=== PATIENT | male | born 1955 | race Caucasian/White ===

== ENCOUNTER 2018-07-08 13:45 | Inpatient (IN) | payer MEDICAID, SELFPAY ==
[2018-07-08] VITALS (15 sets, daily range): BP systolic 128–154; BP diastolic 57–74; PULSE 28–120; RESP 18–104; TEMP 36.1–36.9; O2SAT 88–93; BMI 28.4; BMI 31.3
--- NOTE | 2018-07-08 13:58 | EKG12_ITS ---
Test Reason : SOB Blood Pressure : / mmHG Vent. Rate : 099 BPM Atrial Rate : 099 BPM P-R Int : 140 ms QRS Dur : 080 ms QT Int : 324 ms P-R-T Axes : 082 080 068 degrees QTc Int : 415 ms Normal sinus rhythm Normal ECG Confirmed by PJ KIRK ([id number]), index editor LUCA CHOWDARY ([id number]) on 07/11/2018 2:00:05 PM Referred By: Mal Longoria Confirmed By:PJ KIRK
[2018-07-08] MEDS: Albuterol 2.5 MG/3 ML VIAL.NEB. INHALATION ×3 (14:03→14:33)
[2018-07-08] MEDS: Ipratropium/Albuterol Sulfate 3 ML AMPUL.NEB INHALATION ×3 (14:03→23:35)
[2018-07-08] MEDS: MethylPREDNISolone 125 MG/2 ML Vial IV (14:20)
[2018-07-08] MEDS: 0.9% Normal Saline 1,000 ML 150 ML IV (14:20)
--- NOTE | 2018-07-08 14:45 | RAD_ITS ---
STUDY: X-RAY CHEST REASON FOR EXAM: Male, 62 years old. Cough. TECHNIQUE: PA and lateral views of the chest. COMPARISON: Comparison is made with prior study dated June 06, 2015. FINDINGS: EKG electrodes are seen. Mild increased interstitial markings in the left mid lung. This may represent early infiltrate and/or linear atelectasis. Follow-up is recommended. There is no demonstrated pleural abnormality. Normal size heart. Normal mediastinum and guerita. Normal visualized pulmonary arteries. Normal visualized aortic arch and descending thoracic aorta. Normal visualized thoracic spine. Normal visualized ribs, clavicles, and shoulders. There is no demonstrated abnormality of the visualized soft tissue structures of the upper abdomen. RAD/Chest PA and Lateral IMPRESSION: Mild increase in markings in the left midlung. Follow-up is recommended. Electronically Signed: Jeromy James, at 15:05 EDT , Service support ,
[2018-07-08 14:48] LABS: Anion Gap 4 (5-15); BUN 16 mg/dL (7-18); BUN/Creat Ratio 13.3 RATIO (10-20); Calcium,Total 9.1 mg/dL (8.5-10.1); Chloride 103 mmol/L (98-107); EST Glomerular Filtration Rate 66 mL/min (>60); Est Glom Filt Rate - Afr Amer 79 mL/min (>60); Estimated Creatinine Clearance 65.46 ml/min; Glucose 161 mg/dL (74-106); Potassium 4.2 mmol/L (3.5-5.1); Sodium Level 135 mmol/L (136-145)
[2018-07-08 14:53] LABS: Absolute Lymphocyte Count 1.93 X10^3/ul (0.83-4.51); Basophil# 0.03 X10^3/uL; Basophil% 0.3 % (0-1); Eosinophil# 0.07 X10^3/uL; Eosinophils% 0.6 % (0-5); Hematocrit 39.6 % (40-54); Hemoglobin 13.8 g/dl (13.0-16.5); Lymphocyte # 1.93 X10^3/ul (4.0); Lymphocyte % 17.1 % (19-41); Mean Corp Hgb Conc 34.8 g/gl (32-36); Mean Corpuscular Hgb 32.4 pg (27.0-32.0); Mean Platelet Vol. 10.3 fl (6.2-12.0); Monocyte# 1.19 X10^3/uL; Monocyte% 10.6 % (0-10); Platelet Count 218 K/mm3 (150-450); RBC Distribution Width CV 11.8 % (11.6-14.6); RBC Distribution Width SD 39.1 fl (35.1-43.9); Red Blood Count 4.26 M/mm3 (4.6-6.2); White Blood Count 11.3 K/mm3 (4.4-11.0)
[2018-07-08 14:54] LABS: POSITIVE COUNT NO; POSITIVE DIFFERENTIAL NO; POSITIVE MORPHOLOGY NO
--- NOTE | 2018-07-08 15:04 | ED.VISSUMM ---
- ER Visit Summary Date of Service: 07/08/18 Chief Complaint: Shortness of breath History of Present Illness: The patient is a 62 M presents to the emergency department shortness of breath. Patient does have a history of [id number] diabetes and COPD. He continues to smoke. He states over the past 4 days, he had increasing dyspnea, cough with productive sputum, and shortness of breath. He states today, it is worsened. He states that he actually tried to smoke some cigarettes to get through it but it did not help. He denies any fevers or chills. He only has chest pain when he is coughing. He denies any pain with taking a deep breath, exertional chest pain, or history of DVT. Physical Examination: Vital signs reviewed General: Well-nourished, well-developed Head: Normocephalic, atraumatic Eyes: Pupils equal and reactive, extraocular muscles intact Neck, supple, no lymphadenopathy Heart: Regular rate and rhythm Respiratory: No distress, wheezing in all lung turk Abdomen: Soft, nontender, nondistended, no peritoneal signs Back: Nontender Extremities: Nontender, no edema, no cords Skin: Normal color no rash Neuro: Alert and oriented, no focal or lateralizing deficits Test Results: [] Emergency Department Course and Treatment: [Patient has wheezing all lung turk. IV was established. He was given Solu-Medrol. He is also given multiple nebulized breathing treatments. He did have some transient hypoxia with saturations at 88%. With 2 L, he was up to 99%. Chest x-ray shows atelectasis versus early infiltrate in the left middle lobe. The patient will be started on antibiotics. Labs are unremarkable. EKG was unremarkable. He said no ischemic change. Patient was ambulated in the emergency department. He could not even get up out of bed without becoming acutely hypoxic. His saturations dropped to 85%. He was still had resting tachypnea. The patient is covered with azithromycin. At this time, I do feel he can require admission for continued lung therapy. Patient was discussed with the hospitalist. Treatment Plan: [] Disposition: Admission Impression: 1. COPD exacerbation with hypoxia This note was generated with [employer] software. It may contain incorrect words, spelling, and punctuation that were not noted in review of the chart prior to signing ED Disposition - Plan for ED Patient: Referrals: Lucius Saldana MD [Primary Care Provider] -
--- NOTE | 2018-07-08 16:56 | PCM.HP.STD ---
Problem List (1) Shortness of breath Status: Acute History of Present Illness Date of Admission: 07/08/18 Chief Complaint: Shortness of breath, yellow sputum production The patient is a 62 year old M who was seen in the emergency room at [facility] with chief complaint of shortness of breath and yellow sputum production x4 days. Patient smokes 2 to 3 packs of cigarettes a day but has cut down over the past several days due to shortness of breath. Patient denies any chills or fever, patient denies any alcohol use-he states he is an alcoholic and a former drug abuser (marijuana). Work-up in the emergency room showed an increased area of markings in the left midlung, no overt infiltrate suggestive of pneumonia was noted. Patient's white blood cell count was 11.3, glucose was 161. Patient was given aerosol treatments in the emergency room, his pulse ox on room air while ambulating was 85% and the patient appeared acutely dyspneic on walking-hospitalist service was called for admission. Patient will be admitted to [place] [address] for acute exacerbation of COPD and hypoxia. Past Medical History Past Medical History (Chronic Problems): Chronic Problems Actinic keratosis (Chronic) L57.0 8 mm actinic keratosis with atypia right nasal dorsum Neoplasm of skin of nose (Chronic) D49.2 8 mm lesion right nasal dorsum Allergies No Known Allergies Allergy (Verified 03/12/16 10:53) Home Medications: Ambulatory Orders Medication Instructions Recorded Lisinopril [Zestril] 10 mg PO DAILY 06/06/15 Metformin HCl [Glucophage] 1,000 mg PO BIDCM 06/06/15 [place]-3 Fatty Acids/Fish Oil 1 each PO BID 06/06/15 [[place] 3 1,000 mg Softgel] glipiZIDE [Glucotrol] 5 mg PO DAILY@0730 06/06/15 Ascorbic Acid [Vitamin C] 2,000 mg PO DAILY 07/08/18 Gemfibrozil 600 mg PO BID 07/08/18 Surgical History: - - Exploratory laparotomy due to trauma Psychiatric History: No pertinent psych hx Lives: Alone Smoking Status: Current every day smoker Tobacco Use: Cigarettes Alcohol: None Drugs: None - *Family History Maternal History Items: No pertinent history Review of Systems Constitutional: Denies: Anorexia, Chills, Fever, Night Sweats, Weakness, Weight Change Eyes: Denies: Blurred vision, Cataracts, Conjunctivae Inflammation, Double vision, Drainage HEENT: Denies: Difficulty Swallowing, Dysphasia, Ear Pain, Eye Pain, Hearing Changes, Nasal bleeding, Nasal Congestion, Post Nasal Drip Cardiovascular: Denies: Chest Pain, Claudication, Chest Pressure, Chest Tightness, Edema, Heaviness, Palpitations Respiratory: Reports: Cough, Shortness of Breath, Shortness of breath at rest, Shortness of breath upon exertion, Sputum production. Denies: Hemoptysis, Pleuritic Pain Gastrointestinal: Denies: Abdominal Pain, Constipation, Diarrhea, Hematemesis, Hematochezia, Nausea, Melena, Vomiting Genitourinary: Denies: Dysuria, Frequency, Hematuria, Hesitancy, Incontinence, Nocturia, Retention, Urgency Musculoskeletal: Denies: Back Pain, Foot Pain, Hand Pain, Joint Pain, Joint stiffness, Joint swelling, Joint Tenderness, Leg Pain Skin: Denies: Dryness, Jaundice, Pruritis, Rash Neurological: Denies: Blurred vision, Double vision, Change in Speech, Slurred speech, Difficulty swallowing, Focal weakness, Headaches, Incoordination, Numbness, Tingling Psychiatric: Denies: Anxiety, Depression, Homicidal Ideations, Suicidal Ideations Endocrine: Denies: Change in Body Habitus, Heat/ Cold Intolerance, Polydipsia, Polyuria, Hx of Irradiation Hematologic/ Lymphatic: Denies: Adenopathy, Anemia, Easy Bruising, Easy Bleeding, Petechiae, Purpura VTE Information - Inpt Only VTE Present on Admission: No VTE Mechan Device Prophylaxis: None VTE Pharm Prophylaxis ordered?: Yes Patient Problems: Active and Suspected Problems Shortness of breath (Acute) - Physical Exam General: Alert, Oriented x3, Cooperative, No apparent distress, Well developed, Well nourished HEENT: Atraumatic, PERRLA, EOMI, Normocephalic Oral: Moist Mucosa Neck: Supple, No JVD, Negative Carotid Bruits Lungs: Normal air movement, No rhonchi, No rales, Wheezes - Expiratory wheezes are noted bilaterally Cardiovascular: Regular rate, Regular Rhythm, Normal S1, Normal S2, No murmurs, No Ectopic Activity Abdomen: Bowel Sounds Present, Soft, Non Tender, Non-Distended, No hernias noted Extremities: No clubbing, No cyanosis, No edema, Capillary Refill Less than 3 Seconds Skin: No rashes, No breakdown Musculoskeletal: No Tenderness to Palpation of Joints or Extremities Neurological: Cranial nerves II-XII grossly intact, Neuro grossly intact, Sensory exam intact to light touch and pain, Coordination normal Psych/Mental Status: Normal Affect, Appropriate, Alert and oriented to time, place, person, mood and affect Vital Signs Temp Pulse Resp BP Pulse Ox 97.0 F L 28 L 104 H 138/67 H 92 07/08/18 13:46 07/08/18 16:27 07/08/18 16:27 07/08/18 16:27 07/08/18 16:27 Oxygen Delivery Method Room Air Weight: 87.3 kg Body Mass Index (BMI) 28.4 Finger Stick Blood Glucose 133 Laboratory Tests Past 24 Hrs 07/08/18 07/08/18 14:20 14:20 WBC 11.3 H RBC 4.26 L Hgb 13.8 Hct 39.6 L MCV 93.0 MCH 32.4 H MCHC 34.8 RDW 11.8 RDW Differential 39.1 Plt Count 218 MPV 10.3 Immature Gran % (Auto) 0.400 Neut % (Auto) 71.0 H Lymph % (Auto) 17.1 L [place] % (Auto) 10.6 H Eos % (Auto) 0.6 Baso % (Auto) 0.3 Absolute Neuts (auto) 8.0 H Absolute Lymphs (auto) 1.93 Total Counted Not Reportable Sodium 135 L Potassium 4.2 Chloride 103 Carbon Dioxide 28.0 Anion Gap 4 L BUN 16 Creatinine 1.20 Estim Creat Clear Calc 65.46 Est GFR (MDRD) Af Amer 79 Est GFR (MDRD) Non-Af 66 BUN/Creatinine Ratio 13.3 Glucose 161 H Calcium 9.1 Assessment/Plan All Active Problems Shortness of breath (Acute) #1 acute exacerbation of COPD-patient will be admitted to [facility] 3, he will be given aerosol treatments, IV Solu-Medrol, and oral Zithromax. Patient received IV Zithromax in the emergency room. #2 acute bacterial bronchitis-probably gram-positive bacterial, patient will be kept on p.o. Zithromax #3 hypoxia-pulse ox will be monitored #4 alcoholism #5 type 2 diabetes-patient's blood sugar would be monitored, he will remain on his home medication Code Visit Inpatient E&M: 58899 Init Hosp L3
--- NOTE | 2018-07-08 17:04 | HP.PCM_ITS ---
Problem List (1) Shortness of breath Status: Acute History of Present Illness Date of Admission: 07/08/18 Chief Complaint: Shortness of breath, yellow sputum production The patient is a 62 year old M who was seen in the emergency room at [facility] with chief complaint of shortness of breath and yellow sputum production x4 days. Patient smokes 2 to 3 packs of cigarettes a day but has cut down over the past several days due to shortness of breath. Patient denies any chills or fever, patient denies any alcohol use-he states he is an alcoholic and a former drug abuser (marijuana). Work-up in the emergency room showed an increased area of markings in the left midlung, no overt infiltrate suggestive of pneumonia was noted. Patient's white blood cell count was 11.3, glucose was 161. Patient was given aerosol treatments in the emergency room, his pulse ox on room air while ambulating was 85% and the patient appeared acutely dyspneic on walking-hospitalist service was called for admission. Patient will be admitted to [place] [address] for acute exacerbation of COPD and hypoxia. Past Medical History Past Medical History (Chronic Problems): Chronic Problems Actinic keratosis (Chronic) L57.0 8 mm actinic keratosis with atypia right nasal dorsum Neoplasm of skin of nose (Chronic) D49.2 8 mm lesion right nasal dorsum Allergies No Known Allergies Allergy (Verified 03/12/16 10:53) Home Medications: Ambulatory Orders Medication Instructions Recorded Lisinopril [Zestril] 10 mg PO DAILY 06/06/15 Metformin HCl [Glucophage] 1,000 mg PO BIDCM 06/06/15 [place]-3 Fatty Acids/Fish Oil 1 each PO BID 06/06/15 [[place] 3 1,000 mg Softgel] glipiZIDE [Glucotrol] 5 mg PO DAILY@0730 06/06/15 Ascorbic Acid [Vitamin C] 2,000 mg PO DAILY 07/08/18 Gemfibrozil 600 mg PO BID 07/08/18 Surgical History: - - Exploratory laparotomy due to trauma Psychiatric History: No pertinent psych hx Lives: Alone Smoking Status: Current every day smoker Tobacco Use: Cigarettes Alcohol: None Drugs: None - *Family History Maternal History Items: No pertinent history Review of Systems Constitutional: Denies: Anorexia, Chills, Fever, Night Sweats, Weakness, Weight Change Eyes: Denies: Blurred vision, Cataracts, Conjunctivae Inflammation, Double vision, Drainage HEENT: Denies: Difficulty Swallowing, Dysphasia, Ear Pain, Eye Pain, Hearing Changes, Nasal bleeding, Nasal Congestion, Post Nasal Drip Cardiovascular: Denies: Chest Pain, Claudication, Chest Pressure, Chest Tightness, Edema, Heaviness, Palpitations Respiratory: Reports: Cough, Shortness of Breath, Shortness of breath at rest, Shortness of breath upon exertion, Sputum production. Denies: Hemoptysis, Pleuritic Pain Gastrointestinal: Denies: Abdominal Pain, Constipation, Diarrhea, Hematemesis, Hematochezia, Nausea, Melena, Vomiting Genitourinary: Denies: Dysuria, Frequency, Hematuria, Hesitancy, Incontinence, Nocturia, Retention, Urgency Musculoskeletal: Denies: Back Pain, Foot Pain, Hand Pain, Joint Pain, Joint stiffness, Joint swelling, Joint Tenderness, Leg Pain Skin: Denies: Dryness, Jaundice, Pruritis, Rash Neurological: Denies: Blurred vision, Double vision, Change in Speech, Slurred speech, Difficulty swallowing, Focal weakness, Headaches, Incoordination, Numbness, Tingling Psychiatric: Denies: Anxiety, Depression, Homicidal Ideations, Suicidal Ideations Endocrine: Denies: Change in Body Habitus, Heat/ Cold Intolerance, Polydipsia, Polyuria, Hx of Irradiation Hematologic/ Lymphatic: Denies: Adenopathy, Anemia, Easy Bruising, Easy Bleeding, Petechiae, Purpura VTE Information - Inpt Only VTE Present on Admission: No VTE Mechan Device Prophylaxis: None VTE Pharm Prophylaxis ordered?: Yes Patient Problems: Active and Suspected Problems Shortness of breath (Acute) - Physical Exam General: Alert, Oriented x3, Cooperative, No apparent distress, Well developed, Well nourished HEENT: Atraumatic, PERRLA, EOMI, Normocephalic Oral: Moist Mucosa Neck: Supple, No JVD, Negative Carotid Bruits Lungs: Normal air movement, No rhonchi, No rales, Wheezes - Expiratory wheezes are noted bilaterally Cardiovascular: Regular rate, Regular Rhythm, Normal S1, Normal S2, No murmurs, No Ectopic Activity Abdomen: Bowel Sounds Present, Soft, Non Tender, Non-Distended, No hernias noted Extremities: No clubbing, No cyanosis, No edema, Capillary Refill Less than 3 Seconds Skin: No rashes, No breakdown Musculoskeletal: No Tenderness to Palpation of Joints or Extremities Neurological: Cranial nerves II-XII grossly intact, Neuro grossly intact, Sensory exam intact to light touch and pain, Coordination normal Psych/Mental Status: Normal Affect, Appropriate, Alert and oriented to time, place, person, mood and affect Vital Signs Temp Pulse Resp BP Pulse Ox 97.0 F L 28 L 104 H 138/67 H 92 07/08/18 13:46 07/08/18 16:27 07/08/18 16:27 07/08/18 16:27 07/08/18 16:27 Oxygen Delivery Method Room Air Weight: 87.3 kg Body Mass Index (BMI) 28.4 Finger Stick Blood Glucose 133 Laboratory Tests Past 24 Hrs 07/08/18 07/08/18 14:20 14:20 WBC 11.3 H RBC 4.26 L Hgb 13.8 Hct 39.6 L MCV 93.0 MCH 32.4 H MCHC 34.8 RDW 11.8 RDW Differential 39.1 Plt Count 218 MPV 10.3 Immature Gran % (Auto) 0.400 Neut % (Auto) 71.0 H Lymph % (Auto) 17.1 L [place] % (Auto) 10.6 H Eos % (Auto) 0.6 Baso % (Auto) 0.3 Absolute Neuts (auto) 8.0 H Absolute Lymphs (auto) 1.93 Total Counted Not Reportable Sodium 135 L Potassium 4.2 Chloride 103 Carbon Dioxide 28.0 Anion Gap 4 L BUN 16 Creatinine 1.20 Estim Creat Clear Calc 65.46 Est GFR (MDRD) Af Amer 79 Est GFR (MDRD) Non-Af 66 BUN/Creatinine Ratio 13.3 Glucose 161 H Calcium 9.1 Assessment/Plan All Active Problems Shortness of breath (Acute) #1 acute exacerbation of COPD-patient will be admitted to [facility] 3, he will be given aerosol treatments, IV Solu-Medrol, and oral Zithromax. Patient received IV Zithromax in the emergency room. #2 acute bacterial bronchitis-probably gram-positive bacterial, patient will be kept on p.o. Zithromax #3 hypoxia-pulse ox will be monitored #4 alcoholism #5 type 2 diabetes-patient's blood sugar would be monitored, he will remain on his home medication Code Visit Inpatient E&M: 93091 Init Hosp L3
[2018-07-08 17:25] LABS: Bedside Glucose 281 mg/dL (70-110)
[2018-07-08] MEDS: Insulin Lispro 100 UNIT/ML INSULN.PEN SQ ×2 (17:36→21:05)
[2018-07-08] MEDS: metFORMIN HCl 1,000 MG Tablet 1000 MG PO (18:11)
[2018-07-08 21:36] LABS: Bedside Glucose 370 mg/dL (70-110)
[2018-07-09] VITALS (7 sets, daily range): BP systolic 120–143; BP diastolic 63–73; PULSE 73–100; RESP 20–24; TEMP 36.6–37.2; O2SAT 3–100
[2018-07-09] MEDS: Insulin Lispro 100 UNIT/ML INSULN.PEN SQ ×4 (06:38→21:17)
[2018-07-09] MEDS: Ipratropium/Albuterol Sulfate 3 ML AMPUL.NEB INHALATION ×2 (06:48→13:29)
[2018-07-09 06:50] LABS: Bedside Glucose 298 mg/dL (70-110)
--- NOTE | 2018-07-09 08:20 | PCM.PN.HOSP ---
Patient Problems: Active and Suspected Problems Shortness of breath (Acute) Subjective: The patient has a history of chronic smoker 2 to 3 packs/day, admitted with shortness of breath, cough with productive yellow sputum for 4 days. He does not follow any overedger. His last PCP visit was more than a year ago and missed his appointment recently. Patient was 85% on room air on ambulation in the ED. Patient also said he tested TB test positive in 1992. Chest x-ray reviewed, reported as mild increased interstitial markings in left mid lung though it is hard to appreciate for me. Patient has linear atelectasis. Patient denies chronic cough, weight loss but has sweating. Vitals/I&O's: Vital Signs Temp Pulse Resp BP Pulse Ox 97.8 F 80 20 H 120/63 93 07/09/18 06:42 07/09/18 06:48 07/09/18 06:48 07/09/18 06:42 07/09/18 06:48 Oxygen Flow Rate (L/min) 3.5 Oxygen Delivery Method Nasal Cannula Weight: 212 lb Body Mass Index (BMI) 31.3 Finger Stick Blood Glucose 133 Intake and Output for Last 24 Hours 07/07/18 07/08/18 07/09/18 23:59 23:59 23:59 Intake Total 2488 / 2488 1000 / 1000 Output Total 975 / 975 575 / 575 Balance 1513 / 1513 425 / 425 General: Alert, Oriented x3, Cooperative HEENT: Atraumatic, PERRLA, EOMI, Normocephalic Neck: Supple, No JVD, Negative Carotid Bruits Lungs: Diminished - Air entry is diffusely diminished., Rhonchi Cardiovascular: Regular rate, Regular Rhythm, Normal S1, Normal S2, No murmurs Abdomen: Bowel Sounds Present, Soft, Non Tender Extremities: No edema, Capillary Refill Less than 3 Seconds Skin: No rashes, No breakdown Musculoskeletal: No Tenderness to Palpation of Joints or Extremities Neurological: Cranial nerves II-XII grossly intact Psych/Mental Status: Normal Affect, Appropriate Laboratory Results 07/08/18 14:20: WBC 11.3 H, RBC 4.26 L, Hgb 13.8, Hct 39.6 L, MCV 93.0, MCH 32.4 H, MCHC 34.8, RDW 11.8, RDW Differential 39.1, Plt Count 218, MPV 10.3, Immature Gran % (Auto) 0.400, Neut % (Auto) 71.0 H, Lymph % (Auto) 17.1 L, [place] % (Auto) 10.6 H, Eos % (Auto) 0.6, Baso % (Auto) 0.3, Absolute Neuts (auto) 8.0 H, Absolute Lymphs (auto) 1.93, Total Counted Not Reportable 07/08/18 14:20: Sodium 135 L, Potassium 4.2, Chloride 103, Carbon Dioxide 28.0, Anion Gap 4 L, BUN 16, Creatinine 1.20, Estim Creat Clear Calc 65.46, Est GFR (MDRD) Af Amer 79, Est GFR (MDRD) Non-Af 66, BUN/Creatinine Ratio 13.3, Glucose 161 H, Calcium 9.1 07/08/18 17:22: POC Glucose 281 H 07/08/18 21:03: POC Glucose 370 H 07/09/18 06:37: POC Glucose 298 H Current Medications Acetaminophen (Tylenol) 650 mg PO Q6H PRN PRN PRN Reason: Mild Pain (1-3)/Temp > 100.7 F Albuterol Sulfate (Ventolin Aerosols) 2.5 mg INHALATION Q2H PRN PRN PRN Reason: DYSPNEA Albuterol/Ipratropium (Duoneb) 3 ml INHALATION Q4HWA.RT [facility] Last Admin: 07/09/18 06:48 Dose: 3 ml Azithromycin (Zithromax) 500 mg PO Q24 [facility] Dextrose (D50w Syringe) 0 gm IV X1 PRN; Protocol PRN Reason: Hypoglycemia Enoxaparin Sodium (Lovenox) 40 mg SC DAILY@1000 DEREK Glipizide (Glucotrol) 5 mg PO DAILY@0730 [facility] Glucagon () 1 mg IM .X1 PRN PRN Reason: Hypoglycemia Sodium Chloride () 250 mls @ 15 mls/hr IV .[id number] PRN PRN Reason: SALINE FLUSH Insulin Human Lispro (Humalog Kwikpen (Bkc)) 0 unit SQ ACHS [facility]; Protocol Last Admin: 07/09/18 06:38 Dose: 9 units Lisinopril (Zestril) 10 mg PO DAILY [facility] Metformin HCl (Glucophage) 1,000 mg PO BIDCM [facility] Last Admin: 05/10/19 18:11 Dose: 1,000 mg Methylprednisolone (Solu-Medrol) 40 mg IV Q8 [facility] Last Admin: 07/09/18 06:33 Dose: 40 mg Sodium Chloride () 5 - 15 ml IV UD PRN PRN Reason: SALINE FLUSH Medical Necessity - Tobacco Use Smoking Status: Current every day smoker Tobacco Use: Cigarettes Assessment/Plan All Active Problems Shortness of breath (Acute) The patient is a 62 year old M with history of chronic smoker 2 to 3 packs/day was admitted with acute shortness of breath, dyspnea at rest for 4 days along with productive yellow sputum. Patient denies any fever chills but has sweating. She is also tested positive for TB in 1982 but denies any recent loss of weight, hemoptysis, chronic cough or come in contact with the active TB patient or recent visit to third world countries. Patient also used marijuana and alcohol in the past denies recent alcohol use. #1 acute exacerbation of COPD-patient will be admitted to [facility] 3, he will be given aerosol treatments, IV Solu-Medrol, and oral Zithromax. Patient received IV Zithromax in the emergency room. 2. Patient has history of positive TB test as per history: No record of tuberculin test available. Tuberculin test ordered. Chest x-ray is negative of active TB infiltrate. Follow-up with PCP as an outpatient or outpatient TB clinic if positive tuberculin test for LTBI to complete prophylactic 9 months of isoniazid or 4 months of rifampicin. #3 Acute bronchitis with history of a staph epidermidis bacterial bronchitis: On Zithromax. Respiratory panel ordered. Patient had rare growth of staph epidermidis on previous sputum culture in April 2016. #3 Acute respiratory distress with mild hypoxia: Patient is on 2 L of oxygen. #4 past history of alcoholism: Patient said he quit alcohol drinking. #5 type 2 diabetes-: Blood pressure is elevated between 2 50-370. Started on long-acting insulin. DVT prophylaxis: Lovenox 40 mg subcu daily Laboratory Results 07/08/18 14:20: WBC 11.3 H, RBC 4.26 L, Hgb 13.8, Hct 39.6 L, MCV 93.0, MCH 32.4 H, MCHC 34.8, RDW 11.8, RDW Differential 39.1, Plt Count 218, MPV 10.3, Immature Gran % (Auto) 0.400, Neut % (Auto) 71.0 H, Lymph % (Auto) 17.1 L, [place] % (Auto) 10.6 H, Eos % (Auto) 0.6, Baso % (Auto) 0.3, Absolute Neuts (auto) 8.0 H, Absolute Lymphs (auto) 1.93, Total Counted Not Reportable 07/08/18 14:20: Sodium 135 L, Potassium 4.2, Chloride 103, Carbon Dioxide 28.0, Anion Gap 4 L, BUN 16, Creatinine 1.20, Estim Creat Clear Calc 65.46, Est GFR (MDRD) Af Amer 79, Est GFR (MDRD) Non-Af 66, BUN/Creatinine Ratio 13.3, Glucose 161 H, Calcium 9.1 07/08/18 17:22: POC Glucose 281 H 07/08/18 21:03: POC Glucose 370 H 07/09/18 06:37: POC Glucose 298 H 07/09/18 11:32: POC Glucose 294 H Code Visit Inpatient E&M: 64788 Subs Hosp L3
[2018-07-09] MEDS: Azithromycin 250 MG Tablet 500 MG PO (08:22)
[2018-07-09] MEDS: metFORMIN HCl 1,000 MG Tablet 1000 MG PO ×2 (08:22→16:55)
[2018-07-09] MEDS: glipiZIDE 5 MG Tablet PO (08:22)
[2018-07-09] MEDS: Enoxaparin 40 MG/0.4 ML Syringe SC (08:23)
[2018-07-09] MEDS: Lisinopril 10 MG Tablet PO (08:23)
--- NOTE | 2018-07-09 08:30 | PN_ITS ---
Patient Problems: Active and Suspected Problems Shortness of breath (Acute) Subjective: The patient has a history of chronic smoker 2 to 3 packs/day, admitted with shortness of breath, cough with productive yellow sputum for 4 days. He does not follow any caterpillar mechanic. His last PCP visit was more than a year ago and missed his appointment recently. Patient was 85% on room air on ambulation in the ED. Patient also said he tested TB test positive in 1992. Chest x-ray reviewed, reported as mild increased interstitial markings in left mid lung though it is hard to appreciate for me. Patient has linear atelectasis. Patient denies chronic cough, weight loss but has sweating. Vitals/I&O's: Vital Signs Temp Pulse Resp BP Pulse Ox 97.8 F 80 20 H 120/63 93 07/09/18 06:42 07/09/18 06:48 07/09/18 06:48 07/09/18 06:42 07/09/18 06:48 Oxygen Flow Rate (L/min) 3.5 Oxygen Delivery Method Nasal Cannula Weight: 212 lb Body Mass Index (BMI) 31.3 Finger Stick Blood Glucose 133 Intake and Output for Last 24 Hours 07/07/18 07/08/18 07/09/18 23:59 23:59 23:59 Intake Total 2488 / 2488 1000 / 1000 Output Total 975 / 975 575 / 575 Balance 1513 / 1513 425 / 425 General: Alert, Oriented x3, Cooperative HEENT: Atraumatic, PERRLA, EOMI, Normocephalic Neck: Supple, No JVD, Negative Carotid Bruits Lungs: Diminished - Air entry is diffusely diminished., Rhonchi Cardiovascular: Regular rate, Regular Rhythm, Normal S1, Normal S2, No murmurs Abdomen: Bowel Sounds Present, Soft, Non Tender Extremities: No edema, Capillary Refill Less than 3 Seconds Skin: No rashes, No breakdown Musculoskeletal: No Tenderness to Palpation of Joints or Extremities Neurological: Cranial nerves II-XII grossly intact Psych/Mental Status: Normal Affect, Appropriate Laboratory Results 07/08/18 14:20: WBC 11.3 H, RBC 4.26 L, Hgb 13.8, Hct 39.6 L, MCV 93.0, MCH 32.4 H, MCHC 34.8, RDW 11.8, RDW Differential 39.1, Plt Count 218, MPV 10.3, Immature Gran % (Auto) 0.400, Neut % (Auto) 71.0 H, Lymph % (Auto) 17.1 L, [place] % (Auto) 10.6 H, Eos % (Auto) 0.6, Baso % (Auto) 0.3, Absolute Neuts (auto) 8.0 H, Absolute Lymphs (auto) 1.93, Total Counted Not Reportable 07/08/18 14:20: Sodium 135 L, Potassium 4.2, Chloride 103, Carbon Dioxide 28.0, Anion Gap 4 L, BUN 16, Creatinine 1.20, Estim Creat Clear Calc 65.46, Est GFR (MDRD) Af Amer 79, Est GFR (MDRD) Non-Af 66, BUN/Creatinine Ratio 13.3, Glucose 161 H, Calcium 9.1 07/08/18 17:22: POC Glucose 281 H 07/08/18 21:03: POC Glucose 370 H 07/09/18 06:37: POC Glucose 298 H Current Medications Acetaminophen (Tylenol) 650 mg PO Q6H PRN PRN PRN Reason: Mild Pain (1-3)/Temp > 100.7 F Albuterol Sulfate (Ventolin Aerosols) 2.5 mg INHALATION Q2H PRN PRN PRN Reason: DYSPNEA Albuterol/Ipratropium (Duoneb) 3 ml INHALATION Q4HWA.RT [facility] Last Admin: 07/09/18 06:48 Dose: 3 ml Azithromycin (Zithromax) 500 mg PO Q24 [facility] Dextrose (D50w Syringe) 0 gm IV X1 PRN; Protocol PRN Reason: Hypoglycemia Enoxaparin Sodium (Lovenox) 40 mg SC DAILY@1000 [facility] Glipizide (Glucotrol) 5 mg PO DAILY@0730 [facility] Glucagon () 1 mg IM .X1 PRN PRN Reason: Hypoglycemia Sodium Chloride () 250 mls @ 15 mls/hr IV .[id number] PRN PRN Reason: SALINE FLUSH Insulin Human Lispro (Humalog Kwikpen (Bkc)) 0 unit SQ ACHS [facility]; Protocol Last Admin: 07/09/18 06:38 Dose: 9 units Lisinopril (Zestril) 10 mg PO DAILY [facility] Metformin HCl (Glucophage) 1,000 mg PO BIDCM [facility] Last Admin: 05/10/19 18:11 Dose: 1,000 mg Methylprednisolone (Solu-Medrol) 40 mg IV Q8 [facility] Last Admin: 07/09/18 06:33 Dose: 40 mg Sodium Chloride () 5 - 15 ml IV UD PRN PRN Reason: SALINE FLUSH Medical Necessity - Tobacco Use Smoking Status: Current every day smoker Tobacco Use: Cigarettes Assessment/Plan All Active Problems Shortness of breath (Acute) The patient is a 62 year old M with history of chronic smoker 2 to 3 packs/day was admitted with acute shortness of breath, dyspnea at rest for 4 days along with productive yellow sputum. Patient denies any fever chills but has sweating. She is also tested positive for TB in 1982 but denies any recent loss of weight, hemoptysis, chronic cough or come in contact with the active TB patient or recent visit to third world countries. Patient also used marijuana and alcohol in the past denies recent alcohol use. #1 acute exacerbation of COPD-patient will be admitted to [facility] 3, he will be given aerosol treatments, IV Solu-Medrol, and oral Zithromax. Patient received IV Zithromax in the emergency room. 2. Patient has history of positive TB test as per history: No record of tuberculin test available. Tuberculin test ordered. Chest x-ray is negative of active TB infiltrate. Follow-up with PCP as an outpatient or outpatient TB clinic if positive tuberculin test for LTBI to complete prophylactic 9 months of isoniazid or 4 months of rifampicin. #3 Acute bronchitis with history of a staph epidermidis bacterial bronchitis: On Zithromax. Respiratory panel ordered. Patient had rare growth of staph epidermidis on previous sputum culture in April 2016. #3 Acute respiratory distress with mild hypoxia: Patient is on 2 L of oxygen. #4 past history of alcoholism: Patient said he quit alcohol drinking. #5 type 2 diabetes-: Blood pressure is elevated between 2 50-370. Started on long-acting insulin. DVT prophylaxis: Lovenox 40 mg subcu daily Laboratory Results 07/08/18 14:20: WBC 11.3 H, RBC 4.26 L, Hgb 13.8, Hct 39.6 L, MCV 93.0, MCH 32.4 H, MCHC 34.8, RDW 11.8, RDW Differential 39.1, Plt Count 218, MPV 10.3, Immature Gran % (Auto) 0.400, Neut % (Auto) 71.0 H, Lymph % (Auto) 17.1 L, [place] % (Auto) 10.6 H, Eos % (Auto) 0.6, Baso % (Auto) 0.3, Absolute Neuts (auto) 8.0 H, Absolute Lymphs (auto) 1.93, Total Counted Not Reportable 07/08/18 14:20: Sodium 135 L, Potassium 4.2, Chloride 103, Carbon Dioxide 28.0, Anion Gap 4 L, BUN 16, Creatinine 1.20, Estim Creat Clear Calc 65.46, Est GFR (MDRD) Af Amer 79, Est GFR (MDRD) Non-Af 66, BUN/Creatinine Ratio 13.3, Glucose 161 H, Calcium 9.1 07/08/18 17:22: POC Glucose 281 H 07/08/18 21:03: POC Glucose 370 H 07/09/18 06:37: POC Glucose 298 H 07/09/18 11:32: POC Glucose 294 H Code Visit Inpatient E&M: 48498 Subs Hosp L3
--- NOTE | 2018-07-09 09:45 | CM.UR ---
Addendum entered by Luz Gordon 07/09/18 09:52: Correction to above: prescription benefit is through [employer]. Preferred pharmacy is [facility]. Garret Gordon RN, CCM. Original Note: RN CM CAR PUSHER CM to room to meet with patient for initial transition planning/care coordination assessment. RN JORDAN introduced self and role at [facility]. Pt voices understanding and consents to assessment at this time. Pt resting in bed in no distress at this time. Pt is A/O at this time and answers all questions appropriately. Care providers, pharmacy, and demographics verified at this time. PCP: Les Specialists: Denies any Preferred Pharmacy: [facility] Insurance: [employer] Prescription Benefit: [place] Living Will/HPOA: None. Accepted booklet. LNOK: Mother, who lives in [place]. Living Arrangements: Lives by self in 2 story with 13 steps. Normally no difficulty getting around home. More difficult recently with increased sob. ADLs: Independent. Transportation: Pt states drives self and states no transportation concerns at this time. DME: Denies using any DME and denies needs. HHC/SNF: No SNF. No HHC through agency but did have nurse come from [facility] before. Denies need for HHC at this time. Pt wishes to return home and states has no concerns with going home at time of discharge. CM to follow for possible o2 at home but states he does not want to go home with oxygen. Encouraged patient to stop smoking explaining he will eventually required continuous o2 if he doesn't. Verb understanding. Pt voices no further concerns/needs at this time. PLAN: Home, denies any needs. Garret Gordon RN, CCM.
[2018-07-09] MEDS: Tuberculin,Purif.prot.deriv. 50 TU/ML Vial 5 ML ID (11:29)
[2018-07-09 11:40] LABS: Bedside Glucose 294 mg/dL (70-110)
[2018-07-09] MEDS: 0.9% NaCl Peripheral Flush Adult/Peds IV (14:47)
[2018-07-09 17:00] LABS: Bedside Glucose 278 mg/dL (70-110)
[2018-07-09 21:26] LABS: Bedside Glucose 366 mg/dL (70-110)
[2018-07-10] VITALS (8 sets, daily range): BP systolic 138–144; BP diastolic 55–71; PULSE 60–97; RESP 18–22; TEMP 36.4–36.9; O2SAT 88–97
[2018-07-10] MEDS: Insulin Lispro 100 UNIT/ML INSULN.PEN SQ ×4 (06:29→21:24)
[2018-07-10 06:40] LABS: Bedside Glucose 288 mg/dL (70-110)
[2018-07-10] MEDS: Ipratropium/Albuterol Sulfate 3 ML AMPUL.NEB INHALATION ×4 (07:13→19:30)
[2018-07-10] MEDS: glipiZIDE 5 MG Tablet PO (07:45)
[2018-07-10] MEDS: metFORMIN HCl 1,000 MG Tablet 1000 MG PO ×2 (07:45→16:43)
[2018-07-10 08:36] LABS: Allen Test POS; Base Excess -2 mmol/L (-2 to +2); Bicarbonate 23.5 mmol/L (22-26); Blood Gas Specimen Type ART; O2 Delivery Device Nasal Can; PO2 54 mmHG (75-100); SITE R Radial; SO2 87 % (95-99); Time Given 831; Total Carbon Dioxide 25 mmol/L; pCO2 39.9 mmHg (35-45); pH 7.38 (7.35-7.45)
[2018-07-10] MEDS: Lisinopril 10 MG Tablet PO (10:37)
[2018-07-10] MEDS: Azithromycin 250 MG Tablet 500 MG PO (10:37)
[2018-07-10] MEDS: Enoxaparin 40 MG/0.4 ML Syringe SC (10:37)
--- NOTE | 2018-07-10 11:11 | PCM.PN.HOSP ---
Patient Problems: Active and Suspected Problems Shortness of breath (Acute) Subjective: Patient did not have any fever or chills. Patient still short of breath, tachypneic respiratory rate 20/min, pulse ox 94% on 2 L of oxygen. Patient said he still has paroxysms of cough and yesterday morning he passed out because of cough but did not get any report from nursing staff verbal report or documentation for the same. Patient had tuberculin test yesterday about 11:30 AM on 07/09. Diameter since about half centimeter but is still needs to be measured by caliper after 48 hours. Vitals/I&O's: Vital Signs Temp Pulse Resp BP Pulse Ox 97.7 F L 88 20 H 139/71 H 94 07/10/18 07:40 07/10/18 07:40 07/10/18 07:40 07/10/18 07:40 07/10/18 07:40 Oxygen Flow Rate (L/min) 1 Oxygen Delivery Method Nasal Cannula Weight: 212 lb Body Mass Index (BMI) 31.3 Finger Stick Blood Glucose 133 Intake and Output for Last 24 Hours 07/08/18 07/09/18 07/10/18 23:59 23:59 23:59 Intake Total 2488 / 2488 2300 / 2300 960 / 960 Output Total 975 / 975 1525 / 1525 1100 / 1100 Balance 1513 / 1513 775 / 775 -140 / -140 General: Alert, Oriented x3, Cooperative HEENT: Atraumatic, PERRLA, EOMI, Normocephalic Neck: Supple, No JVD, Negative Carotid Bruits Lungs: Diminished - Air entry is diffusely diminished., Rhonchi - Diffuse rhonchi present, Short of Breath, Tachypneic, Wheezes Cardiovascular: Regular rate, Regular Rhythm, Normal S1, Normal S2, No murmurs Abdomen: Bowel Sounds Present, Soft, Non Tender Extremities: No edema, Capillary Refill Less than 3 Seconds Skin: No rashes, No breakdown, - - Tuberculin test on left forearm Musculoskeletal: No Tenderness to Palpation of Joints or Extremities, Arthritic Changes Lymphatic: No Cervical, Supraclavicular, or Inguinal Adenopathy Neurological: Cranial nerves II-XII grossly intact, Deep Tendon Reflexes 2+/4 and Symmetrical, Neuro grossly intact Psych/Mental Status: Normal Affect, Appropriate Microbiology Past 72 Hours 07/09/18 14:55 Sputum, Expectorated/Coughed Gram Stain - Preliminary 07/09/18 14:55 Sputum, Expectorated/Coughed Respiratory Culture - Preliminary Appears to be normal respiratory katina. Further studies to follow. 07/09/18 13:29 Mucosa - Nose Respiratory Panel (PCR) - Final 07/09/18 17:15 Urine, Clean Catch Streptococcus pneumoniae Antigen (M - Final 07/09/18 17:15 Urine, Clean Catch Legionella Antigen - Final Laboratory Results 07/09/18 11:32: POC Glucose 294 H 07/09/18 16:53: POC Glucose 278 H 07/09/18 21:12: POC Glucose 366 H 07/10/18 06:28: POC Glucose 288 H 07/10/18 08:31: Specimen Type ART, Sample Site R Radial, pH 7.38, Bicarbonate Actual 23.5, POC Total CO2 25, Base Excess -2, O2 Saturation 87 L, ABG pCO2 39.9, ABG pO2 54 L, Chun Test POS, O2 Delivery Device Nasal Can, Liter Flow 2.0, Blood Gas Notified Whom RN, Blood Gas Notified Time 831 Current Medications Acetaminophen (Tylenol) 650 mg PO Q6H PRN PRN PRN Reason: Mild Pain (1-3)/Temp > 100.7 F Albuterol Sulfate (Ventolin Aerosols) 2.5 mg INHALATION Q2H PRN PRN PRN Reason: DYSPNEA Albuterol/Ipratropium (Duoneb) 3 ml INHALATION Q4HWA.RT [facility] Last Admin: 07/10/18 10:43 Dose: 3 ml Azithromycin (Zithromax) 500 mg PO Q24 [facility] Last Admin: 07/10/18 10:37 Dose: 500 mg Dextrose (D50w Syringe) 0 gm IV X1 PRN; Protocol PRN Reason: Hypoglycemia Enoxaparin Sodium (Lovenox) 40 mg SC DAILY@1000 [facility] Last Admin: 07/10/18 10:37 Dose: 40 mg Glipizide (Glucotrol) 5 mg PO DAILY@0730 [facility] Last Admin: 07/10/18 07:45 Dose: 5 mg Glucagon () 1 mg IM .X1 PRN PRN Reason: Hypoglycemia Sodium Chloride () 250 mls @ 15 mls/hr IV .[id number] PRN PRN Reason: SALINE FLUSH Insulin Glargine (Lantus (Bkc)) 10 units SC 1100,2200 [facility] Last Admin: 07/10/18 10:36 Dose: 10 units Insulin Human Lispro (Humalog Kwikpen (Bk)) 0 unit SQ ACHS [facility]; Protocol Last Admin: 07/10/18 06:29 Dose: 9 units Lisinopril (Zestril) 10 mg PO DAILY [facility] Last Admin: 07/10/18 10:37 Dose: 10 mg Metformin HCl (Glucophage) 1,000 mg PO BIDCM [facility] Last Admin: 07/10/18 07:45 Dose: 1,000 mg Methylprednisolone (Solu-Medrol) 40 mg IV Q8 [facility] Last Admin: 07/10/18 06:24 Dose: 40 mg Sodium Chloride () 5 - 15 ml IV UD PRN PRN Reason: SALINE FLUSH Last Admin: 07/09/18 14:47 Dose: 10 ml Medical Necessity - Tobacco Use Smoking Status: Current every day smoker Tobacco Use: Cigarettes Assessment/Plan All Active Problems Shortness of breath (Acute) The patient is a 62 year old M with history of chronic smoker 2 to 3 packs/day was admitted with acute shortness of breath, dyspnea at rest for 4 days along with productive yellow sputum. Patient denies any fever chills but has sweating. She is also tested positive for TB in 1982 but denies any recent loss of weight, hemoptysis, chronic cough or come in contact with the active TB patient or recent visit to third world countries. Patient also used marijuana and alcohol in the past denies recent alcohol use. #1 acute exacerbation of COPD-patient will be admitted to [facility] 3, he will be given aerosol treatments, IV Solu-Medrol, and oral Zithromax. Patient received IV Zithromax in the emergency room. ABG was done and reported as pH 7.38/40/54 on 2 L nasal cannula. pH and PCO2 is normal WITH High AA gradient. Repeat chest x-ray ordered. 2. Patient has history of positive TB test as per history,LTBI?: No record of tuberculin test available. Chest x-ray is negative of active TB infiltrate. Patient had tuberculin test yesterday about 11:30 AM on 07/09. Diameter since about half centimeter but is still needs to be measured by caliper after 48 hours. Follow-up with PCP as an outpatient or outpatient TB clinic if positive tuberculin test for LTBI to complete prophylactic 9 months of isoniazid or 4 months of rifampicin. #3 Acute bronchitis with history of a staph epidermidis bacterial bronchitis: On Zithromax. Respiratory panel negative. Preliminary sputum culture shows normal respiratory katina. Patient had rare growth of staph epidermidis on previous sputum culture in April 2016. #3 Acute respiratory distress with mild hypoxia: Patient is on 2 L of oxygen. #4 past history of alcoholism: Patient said he quit alcohol drinking. #5 type 2 diabetes-: Blood pressure is elevated between 2 50-370. Started on long-acting insulin. DVT prophylaxis: Lovenox 40 mg subcu daily Laboratory Results Microbiology Past 72 Hours 07/09/18 14:55 Sputum, Expectorated/Coughed Gram Stain - Preliminary 07/09/18 14:55 Sputum, Expectorated/Coughed Respiratory Culture - Preliminary Appears to be normal respiratory katina. Further studies to follow. 07/09/18 13:29 Mucosa - Nose Respiratory Panel (PCR) - Final 07/09/18 17:15 Urine, Clean Catch Streptococcus pneumoniae Antigen (M - Final 07/09/18 17:15 Urine, Clean Catch Legionella Antigen - Final Laboratory Results 07/09/18 11:32: POC Glucose 294 H 07/09/18 16:53: POC Glucose 278 H 07/09/18 21:12: POC Glucose 366 H 07/10/18 06:28: POC Glucose 288 H 07/10/18 08:31: Specimen Type ART, Sample Site R Radial, pH 7.38, Bicarbonate Actual 23.5, POC Total CO2 25, Base Excess -2, O2 Saturation 87 L, ABG pCO2 39.9, ABG pO2 54 L, Chun Test POS, O2 Delivery Device Nasal Can, Liter Flow 2.0, Blood Gas Notified Whom RN, Blood Gas Notified Time 831 Code Visit Inpatient E&M: 28970 Subs Hosp L3
--- NOTE | 2018-07-10 11:16 | PN_ITS ---
Patient Problems: Active and Suspected Problems Shortness of breath (Acute) Subjective: Patient did not have any fever or chills. Patient still short of breath, tachypneic respiratory rate 20/min, pulse ox 94% on 2 L of oxygen. Patient said he still has paroxysms of cough and yesterday morning he passed out because of cough but did not get any report from nursing staff verbal report or documentation for the same. Patient had tuberculin test yesterday about 11:30 AM on 07/09. Diameter since about half centimeter but is still needs to be measured by caliper after 48 hours. Vitals/I&O's: Vital Signs Temp Pulse Resp BP Pulse Ox 97.7 F L 88 20 H 139/71 H 94 07/10/18 07:40 07/10/18 07:40 07/10/18 07:40 07/10/18 07:40 07/10/18 07:40 Oxygen Flow Rate (L/min) 1 Oxygen Delivery Method Nasal Cannula Weight: 212 lb Body Mass Index (BMI) 31.3 Finger Stick Blood Glucose 133 Intake and Output for Last 24 Hours 07/08/18 07/09/18 07/10/18 23:59 23:59 23:59 Intake Total 2488 / 2488 2300 / 2300 960 / 960 Output Total 975 / 975 1525 / 1525 1100 / 1100 Balance 1513 / 1513 775 / 775 -140 / -140 General: Alert, Oriented x3, Cooperative HEENT: Atraumatic, PERRLA, EOMI, Normocephalic Neck: Supple, No JVD, Negative Carotid Bruits Lungs: Diminished - Air entry is diffusely diminished., Rhonchi - Diffuse rhonchi present, Short of Breath, Tachypneic, Wheezes Cardiovascular: Regular rate, Regular Rhythm, Normal S1, Normal S2, No murmurs Abdomen: Bowel Sounds Present, Soft, Non Tender Extremities: No edema, Capillary Refill Less than 3 Seconds Skin: No rashes, No breakdown, - - Tuberculin test on left forearm Musculoskeletal: No Tenderness to Palpation of Joints or Extremities, Arthritic Changes Lymphatic: No Cervical, Supraclavicular, or Inguinal Adenopathy Neurological: Cranial nerves II-XII grossly intact, Deep Tendon Reflexes 2+/4 and Symmetrical, Neuro grossly intact Psych/Mental Status: Normal Affect, Appropriate Microbiology Past 72 Hours 07/09/18 14:55 Sputum, Expectorated/Coughed Gram Stain - Preliminary 07/09/18 14:55 Sputum, Expectorated/Coughed Respiratory Culture - Preliminary Appears to be normal respiratory katina. Further studies to follow. 07/09/18 13:29 Mucosa - Nose Respiratory Panel (PCR) - Final 07/09/18 17:15 Urine, Clean Catch Streptococcus pneumoniae Antigen (M - Final 07/09/18 17:15 Urine, Clean Catch Legionella Antigen - Final Laboratory Results 07/09/18 11:32: POC Glucose 294 H 07/09/18 16:53: POC Glucose 278 H 07/09/18 21:12: POC Glucose 366 H 07/10/18 06:28: POC Glucose 288 H 07/10/18 08:31: Specimen Type ART, Sample Site R Radial, pH 7.38, Bicarbonate Actual 23.5, POC Total CO2 25, Base Excess -2, O2 Saturation 87 L, ABG pCO2 39.9, ABG pO2 54 L, Chun Test POS, O2 Delivery Device Nasal Can, Liter Flow 2.0, Blood Gas Notified Whom RN, Blood Gas Notified Time 831 Current Medications Acetaminophen (Tylenol) 650 mg PO Q6H PRN PRN PRN Reason: Mild Pain (1-3)/Temp > 100.7 F Albuterol Sulfate (Ventolin Aerosols) 2.5 mg INHALATION Q2H PRN PRN PRN Reason: DYSPNEA Albuterol/Ipratropium (Duoneb) 3 ml INHALATION Q4HWA.RT [facility] Last Admin: 07/10/18 10:43 Dose: 3 ml Azithromycin (Zithromax) 500 mg PO Q24 [facility] Last Admin: 07/10/18 10:37 Dose: 500 mg Dextrose (D50w Syringe) 0 gm IV X1 PRN; Protocol PRN Reason: Hypoglycemia Enoxaparin Sodium (Lovenox) 40 mg SC DAILY@1000 [facility] Last Admin: 07/10/18 10:37 Dose: 40 mg Glipizide (Glucotrol) 5 mg PO DAILY@0730 [facility] Last Admin: 07/10/18 07:45 Dose: 5 mg Glucagon () 1 mg IM .X1 PRN PRN Reason: Hypoglycemia Sodium Chloride () 250 mls @ 15 mls/hr IV .[id number] PRN PRN Reason: SALINE FLUSH Insulin Glargine (Lantus (Bkc)) 10 units SC 1100,2200 [facility] Last Admin: 07/10/18 10:36 Dose: 10 units Insulin Human Lispro (Humalog Kwikpen (Bk)) 0 unit SQ ACHS [facility]; Protocol Last Admin: 07/10/18 06:29 Dose: 9 units Lisinopril (Zestril) 10 mg PO DAILY [facility] Last Admin: 07/10/18 10:37 Dose: 10 mg Metformin HCl (Glucophage) 1,000 mg PO BIDCM [facility] Last Admin: 07/10/18 07:45 Dose: 1,000 mg Methylprednisolone (Solu-Medrol) 40 mg IV Q8 [facility] Last Admin: 07/10/18 06:24 Dose: 40 mg Sodium Chloride () 5 - 15 ml IV UD PRN PRN Reason: SALINE FLUSH Last Admin: 07/09/18 14:47 Dose: 10 ml Medical Necessity - Tobacco Use Smoking Status: Current every day smoker Tobacco Use: Cigarettes Assessment/Plan All Active Problems Shortness of breath (Acute) The patient is a 62 year old M with history of chronic smoker 2 to 3 packs/day was admitted with acute shortness of breath, dyspnea at rest for 4 days along with productive yellow sputum. Patient denies any fever chills but has sweating. She is also tested positive for TB in 1982 but denies any recent loss of weight, hemoptysis, chronic cough or come in contact with the active TB patient or recent visit to third world countries. Patient also used marijuana and alcohol in the past denies recent alcohol use. #1 acute exacerbation of COPD-patient will be admitted to [facility] 3, he will be given aerosol treatments, IV Solu-Medrol, and oral Zithromax. Patient received IV Zithromax in the emergency room. ABG was done and reported as pH 7.38/40/54 on 2 L nasal cannula. pH and PCO2 is normal WITH High AA gradient. Repeat chest x-ray ordered. 2. Patient has history of positive TB test as per history,LTBI?: No record of tuberculin test available. Chest x-ray is negative of active TB infiltrate. Patient had tuberculin test yesterday about 11:30 AM on 07/09. Diameter since about half centimeter but is still needs to be measured by caliper after 48 hours. Follow-up with PCP as an outpatient or outpatient TB clinic if positive tuberculin test for LTBI to complete prophylactic 9 months of isoniazid or 4 months of rifampicin. #3 Acute bronchitis with history of a staph epidermidis bacterial bronchitis: On Zithromax. Respiratory panel negative. Preliminary sputum culture shows normal respiratory katina. Patient had rare growth of staph epidermidis on previous sputum culture in April 2016. #3 Acute respiratory distress with mild hypoxia: Patient is on 2 L of oxygen. #4 past history of alcoholism: Patient said he quit alcohol drinking. #5 type 2 diabetes-: Blood pressure is elevated between 2 50-370. Started on long-acting insulin. DVT prophylaxis: Lovenox 40 mg subcu daily Laboratory Results Microbiology Past 72 Hours 07/09/18 14:55 Sputum, Expectorated/Coughed Gram Stain - Preliminary 07/09/18 14:55 Sputum, Expectorated/Coughed Respiratory Culture - Preliminary Appears to be normal respiratory katina. Further studies to follow. 07/09/18 13:29 Mucosa - Nose Respiratory Panel (PCR) - Final 07/09/18 17:15 Urine, Clean Catch Streptococcus pneumoniae Antigen (M - Final 07/09/18 17:15 Urine, Clean Catch Legionella Antigen - Final Laboratory Results 07/09/18 11:32: POC Glucose 294 H 07/09/18 16:53: POC Glucose 278 H 07/09/18 21:12: POC Glucose 366 H 07/10/18 06:28: POC Glucose 288 H 07/10/18 08:31: Specimen Type ART, Sample Site R Radial, pH 7.38, Bicarbonate Actual 23.5, POC Total CO2 25, Base Excess -2, O2 Saturation 87 L, ABG pCO2 39.9, ABG pO2 54 L, Chun Test POS, O2 Delivery Device Nasal Can, Liter Flow 2.0, Blood Gas Notified Whom RN, Blood Gas Notified Time 831 Code Visit Inpatient E&M: 05117 Subs Hosp L3
--- NOTE | 2018-07-10 11:17 | RAD_ITS ---
STUDY: X-RAY CHEST REASON FOR EXAM: Male, 62 years old. Shortness of breath. COPD. TECHNIQUE: PA and lateral views of the chest. COMPARISON: July 08, 2018 FINDINGS: There is hyperinflation of the lungs consistent with chronic obstructive lung disease (COPD). There is no demonstrated pleural abnormality. Normal size heart. Normal mediastinum and guerita. Normal visualized pulmonary arteries. Normal visualized aortic arch and descending thoracic aorta. Normal visualized thoracic spine. Stable healed left posterior rib fractures. There is no demonstrated abnormality of the visualized soft tissue structures of the upper abdomen. RAD/Chest PA and Lateral IMPRESSION: Degenerative changes, as described above. No demonstrated acute cardiopulmonary process. Electronically Signed: Israel Lu MD at 12:04 EDT , Service support ,
[2018-07-10 12:15] LABS: Bedside Glucose 316 mg/dL (70-110)
[2018-07-10] MEDS: 0.9% NaCl Peripheral Flush Adult/Peds IV (14:40)
[2018-07-10 16:55] LABS: Bedside Glucose 321 mg/dL (70-110)
[2018-07-11] VITALS (7 sets, daily range): BP systolic 128–154; BP diastolic 49–75; PULSE 57–84; RESP 18; TEMP 36.4–36.6; O2SAT 92–97
[2018-07-11 00:26] LABS: Bedside Glucose 427 mg/dL (70-110)
[2018-07-11] MEDS: Insulin Lispro 100 UNIT/ML INSULN.PEN SQ ×4 (06:33→22:30)
[2018-07-11] MEDS: Ipratropium/Albuterol Sulfate 3 ML AMPUL.NEB INHALATION ×3 (06:43→15:02)
[2018-07-11] MEDS: metFORMIN HCl 1,000 MG Tablet 1000 MG PO ×2 (08:55→16:07)
[2018-07-11] MEDS: glipiZIDE 5 MG Tablet PO (08:55)
[2018-07-11] MEDS: Azithromycin 250 MG Tablet 500 MG PO (09:13)
[2018-07-11] MEDS: Enoxaparin 40 MG/0.4 ML Syringe SC (09:13)
[2018-07-11] MEDS: Lisinopril 10 MG Tablet PO (09:13)
[2018-07-11 11:40] LABS: Bedside Glucose 369 mg/dL (70-110)
--- NOTE | 2018-07-11 14:54 | CHAPLAIN ---
Type of Pastoral Visit _x__ Initial Visit ___ Follow-up Visit ___ On-call Visit ___ General Patient Visit ___ Spiritual Assessment ___ Family Conference ___ Bereavement ___ Rapid Response ___ Code Blue ___ Other (describe below) Pastoral Care Referral From _x__ Patient ___ Family ___ Nurse ___ Physician ___ Ambulance Driver Paramedic ___ Recreation Assistant ___ Other (describe below) Sacrament/Intervention ___ Active listening ___ Anointing ___ Voodoo ___ Bereavement ___ Communion ___ [place] exploration ___ ___ Life review _x__ Prayer ___ Reconciliation ___ Sacrament of Sick _x__ Supportive presence ___ Wedding ___ Other (describe below) Pastoral Comments
[2018-07-11] MEDS: 0.9% NaCl Peripheral Flush Adult/Peds IV ×2 (15:49→22:33)
[2018-07-11 16:36] LABS: Bedside Glucose 282 mg/dL (70-110)
[2018-07-11 16:51] LABS: Bedside Glucose 333 mg/dL (70-110)
--- NOTE | 2018-07-11 18:22 | PCM.PN.HOSP ---
Patient Problems: Active and Suspected Problems Shortness of breath (Acute) Subjective: He feels a little bit better than when he came in, there is still having cough and feels short of breath at times Vitals/I&O's: Vital Signs Temp Pulse Resp BP Pulse Ox 97.9 F 83 18 128/75 H 92 07/11/18 14:02 07/11/18 15:02 07/11/18 15:02 07/11/18 14:02 07/11/18 14:02 Oxygen Flow Rate (L/min) 2 Oxygen Delivery Method Room Air Weight: 212 lb Body Mass Index (BMI) 31.3 Finger Stick Blood Glucose 133 Intake and Output for Last 24 Hours 07/09/18 07/10/18 07/11/18 23:59 23:59 23:59 Intake Total 2300 / 2300 2360 / 2360 950 / 950 Output Total 1525 / 1525 1999 / 1999 2900 / 2900 Balance 775 / 775 360 / 360 -1950 / -1950 General: Alert, Oriented x3, Cooperative, No apparent distress HEENT: Atraumatic, EOMI, Normocephalic Oral: Moist Mucosa Neck: Supple, No JVD Lungs: Normal air movement, Rhonchi, Wheezes Cardiovascular: Regular rate, Regular Rhythm, Normal S1, Normal S2, No murmurs Abdomen: Soft, Non Tender, Non-Distended, No Hepato-splenomegaly Extremities: No edema, Capillary Refill Less than 3 Seconds Skin: No rashes, No breakdown Neurological: Neuro grossly intact, Sensory exam intact to light touch and pain Psych/Mental Status: Normal Affect, Appropriate Microbiology Past 72 Hours 07/09/18 14:55 Sputum, Expectorated/Coughed Gram Stain - Final 07/09/18 14:55 Sputum, Expectorated/Coughed Respiratory Culture - Preliminary Appears to be normal respiratory katina. Further studies to follow. 07/09/18 13:29 Mucosa - Nose Respiratory Panel (PCR) - Final 07/09/18 17:15 Urine, Clean Catch Streptococcus pneumoniae Antigen (M - Final 07/09/18 17:15 Urine, Clean Catch Legionella Antigen - Final Laboratory Results 07/10/18 21:22: POC Glucose 427 H 07/11/18 06:32: POC Glucose 333 H 07/11/18 11:30: POC Glucose 369 H 07/11/18 15:57: POC Glucose 282 H Current Medications Acetaminophen (Tylenol) 650 mg PO Q6H PRN PRN PRN Reason: Mild Pain (1-3)/Temp > 100.7 F Albuterol Sulfate (Ventolin Aerosols) 2.5 mg INHALATION Q2H PRN PRN PRN Reason: DYSPNEA Albuterol/Ipratropium (Duoneb) 3 ml INHALATION Q4HWA.RT [facility] Last Admin: 07/11/18 15:02 Dose: 3 ml Azithromycin (Zithromax) 500 mg PO Q24 [facility] Last Admin: 07/11/18 09:13 Dose: 500 mg Dextrose (D50w Syringe) 0 gm IV X1 PRN; Protocol PRN Reason: Hypoglycemia Enoxaparin Sodium (Lovenox) 40 mg SC DAILY@1000 [facility] Last Admin: 07/11/18 09:13 Dose: 40 mg Glipizide (Glucotrol) 5 mg PO DAILY@0730 [facility] Last Admin: 07/11/18 08:55 Dose: 5 mg Glucagon () 1 mg IM .X1 PRN PRN Reason: Hypoglycemia Sodium Chloride () 250 mls @ 15 mls/hr IV .[id number] PRN PRN Reason: SALINE FLUSH Insulin Glargine (Lantus (Bkc)) 10 units SC 1100,2200 [facility] Last Admin: 07/11/18 11:32 Dose: 10 units Insulin Human Lispro (Humalog Kwikpen (Bkc)) 0 unit SQ ACHS [facility]; Protocol Last Admin: 07/11/18 15:57 Dose: 9 units Lisinopril (Zestril) 10 mg PO DAILY [facility] Last Admin: 07/11/18 09:13 Dose: 10 mg Metformin HCl (Glucophage) 1,000 mg PO BIDCM [facility] Last Admin: 07/11/18 16:07 Dose: 1,000 mg Methylprednisolone (Solu-Medrol) 40 mg IV Q8 [facility] Last Admin: 07/11/18 15:47 Dose: 40 mg Sodium Chloride () 5 - 15 ml IV UD PRN PRN Reason: SALINE FLUSH Last Admin: 07/11/18 15:49 Dose: 10 ml Medical Necessity - Tobacco Use Smoking Status: Current every day smoker Tobacco Use: Cigarettes Assessment/Plan All Active Problems Shortness of breath (Acute) 1. Acute exacerbation of COPD with respiratory distress with mild hypoxemia/?TB -Currently on room air at 92%, however he was not comfortable with going home today -Continue with his steroids and aerosol treatments, will complete his course of azithromycin in the hospital -PPD test placed which was negative for reaction and his chest x-ray was also negative for TB 2. Acute bronchitis with a history of staph epidermidis bacterial bronchitis -Respiratory panel and sputum cultures are negative -Complete azithromycin on the inpatient side 3. Type 2 diabetes -Continue to monitor blood sugars and continue with his home medications -He has been on Lantus 10 units twice daily will increase given his blood sugars -This is likely secondary to his steroids and he should be able to come back down off of the insulin as an outpatient 4. HTN -We will continue with lisinopril as his blood pressure is under control and he is a diabetic DVT: Lovenox Code Visit Inpatient E&M: 10131 Subs Hosp L2
--- NOTE | 2018-07-11 18:29 | PN_ITS ---
Patient Problems: Active and Suspected Problems Shortness of breath (Acute) Subjective: He feels a little bit better than when he came in, there is still having cough and feels short of breath at times Vitals/I&O's: Vital Signs Temp Pulse Resp BP Pulse Ox 97.9 F 83 18 128/75 H 92 07/11/18 14:02 07/11/18 15:02 07/11/18 15:02 07/11/18 14:02 07/11/18 14:02 Oxygen Flow Rate (L/min) 2 Oxygen Delivery Method Room Air Weight: 212 lb Body Mass Index (BMI) 31.3 Finger Stick Blood Glucose 133 Intake and Output for Last 24 Hours 07/09/18 07/10/18 07/11/18 23:59 23:59 23:59 Intake Total 2300 / 2300 2360 / 2360 950 / 950 Output Total 1525 / 1525 1999 / 1999 2900 / 2900 Balance 775 / 775 360 / 360 -1950 / -1950 General: Alert, Oriented x3, Cooperative, No apparent distress HEENT: Atraumatic, EOMI, Normocephalic Oral: Moist Mucosa Neck: Supple, No JVD Lungs: Normal air movement, Rhonchi, Wheezes Cardiovascular: Regular rate, Regular Rhythm, Normal S1, Normal S2, No murmurs Abdomen: Soft, Non Tender, Non-Distended, No Hepato-splenomegaly Extremities: No edema, Capillary Refill Less than 3 Seconds Skin: No rashes, No breakdown Neurological: Neuro grossly intact, Sensory exam intact to light touch and pain Psych/Mental Status: Normal Affect, Appropriate Microbiology Past 72 Hours 07/09/18 14:55 Sputum, Expectorated/Coughed Gram Stain - Final 07/09/18 14:55 Sputum, Expectorated/Coughed Respiratory Culture - Preliminary Appears to be normal respiratory katina. Further studies to follow. 07/09/18 13:29 Mucosa - Nose Respiratory Panel (PCR) - Final 07/09/18 17:15 Urine, Clean Catch Streptococcus pneumoniae Antigen (M - Final 07/09/18 17:15 Urine, Clean Catch Legionella Antigen - Final Laboratory Results 07/10/18 21:22: POC Glucose 427 H 07/11/18 06:32: POC Glucose 333 H 07/11/18 11:30: POC Glucose 369 H 07/11/18 15:57: POC Glucose 282 H Current Medications Acetaminophen (Tylenol) 650 mg PO Q6H PRN PRN PRN Reason: Mild Pain (1-3)/Temp > 100.7 F Albuterol Sulfate (Ventolin Aerosols) 2.5 mg INHALATION Q2H PRN PRN PRN Reason: DYSPNEA Albuterol/Ipratropium (Duoneb) 3 ml INHALATION Q4HWA.RT [facility] Last Admin: 07/11/18 15:02 Dose: 3 ml Azithromycin (Zithromax) 500 mg PO Q24 [facility] Last Admin: 07/11/18 09:13 Dose: 500 mg Dextrose (D50w Syringe) 0 gm IV X1 PRN; Protocol PRN Reason: Hypoglycemia Enoxaparin Sodium (Lovenox) 40 mg SC DAILY@1000 [facility] Last Admin: 07/11/18 09:13 Dose: 40 mg Glipizide (Glucotrol) 5 mg PO DAILY@0730 [facility] Last Admin: 07/11/18 08:55 Dose: 5 mg Glucagon () 1 mg IM .X1 PRN PRN Reason: Hypoglycemia Sodium Chloride () 250 mls @ 15 mls/hr IV .[id number] PRN PRN Reason: SALINE FLUSH Insulin Glargine (Lantus (Bkc)) 10 units SC 1100,2200 [facility] Last Admin: 07/11/18 11:32 Dose: 10 units Insulin Human Lispro (Humalog Kwikpen (Bkc)) 0 unit SQ ACHS [facility]; Protocol Last Admin: 07/11/18 15:57 Dose: 9 units Lisinopril (Zestril) 10 mg PO DAILY [facility] Last Admin: 07/11/18 09:13 Dose: 10 mg Metformin HCl (Glucophage) 1,000 mg PO BIDCM [facility] Last Admin: 07/11/18 16:07 Dose: 1,000 mg Methylprednisolone (Solu-Medrol) 40 mg IV Q8 [facility] Last Admin: 07/11/18 15:47 Dose: 40 mg Sodium Chloride () 5 - 15 ml IV UD PRN PRN Reason: SALINE FLUSH Last Admin: 07/11/18 15:49 Dose: 10 ml Medical Necessity - Tobacco Use Smoking Status: Current every day smoker Tobacco Use: Cigarettes Assessment/Plan All Active Problems Shortness of breath (Acute) 1. Acute exacerbation of COPD with respiratory distress with mild hypoxemia/?TB -Currently on room air at 92%, however he was not comfortable with going home today -Continue with his steroids and aerosol treatments, will complete his course of azithromycin in the hospital -PPD test placed which was negative for reaction and his chest x-ray was also negative for TB 2. Acute bronchitis with a history of staph epidermidis bacterial bronchitis -Respiratory panel and sputum cultures are negative -Complete azithromycin on the inpatient side 3. Type 2 diabetes -Continue to monitor blood sugars and continue with his home medications -He has been on Lantus 10 units twice daily will increase given his blood sugars -This is likely secondary to his steroids and he should be able to come back down off of the insulin as an outpatient 4. HTN -We will continue with lisinopril as his blood pressure is under control and he is a diabetic DVT: Lovenox Code Visit Inpatient E&M: 73720 Subs Hosp L2
[2018-07-11 22:40] LABS: Bedside Glucose 390 mg/dL (70-110)
[2018-07-12 03:17] VITALS: BP 158/57; PULSE 65; RESP 18; TEMP 36.4; O2SAT 95
[2018-07-12 06:07] LABS: Hematocrit 42.2 % (40-54); Hemoglobin 14.7 g/dl (13.0-16.5); Mean Corp Hgb Conc 34.8 g/gl (32-36); Mean Corpuscular Volume 91.9 fL (80-94); Mean Platelet Vol. 10.5 fl (6.2-12.0); Platelet Count 297 K/mm3 (150-450); RBC Distribution Width CV 11.7 % (11.6-14.6); RBC Distribution Width SD 38.8 fl (35.1-43.9); Red Blood Count 4.59 M/mm3 (4.6-6.2); White Blood Count 14.4 K/mm3 (4.4-11.0)
[2018-07-12 06:08] LABS: POSITIVE DIFFERENTIAL NO
[2018-07-12 06:14] LABS: Anion Gap 5 (5-15); BUN 28 mg/dL (7-18); BUN/Creat Ratio 24.6 RATIO (10-20); Calcium,Total 9.2 mg/dL (8.5-10.1); Chloride 104 mmol/L (98-107); Creatinine, Serum 1.14 mg/dL (0.70-1.30); EST Glomerular Filtration Rate 70 mL/min (>60); Est Glom Filt Rate - Afr Amer 84 mL/min (>60); Estimated Creatinine Clearance 68.91 ml/min; Glucose 373 mg/dL (74-106); Potassium 4.8 mmol/L (3.5-5.1); Sodium Level 138 mmol/L (136-145)
[2018-07-12] MEDS: Insulin Lispro 100 UNIT/ML INSULN.PEN SQ ×2 (06:34→11:39)
[2018-07-12] MEDS: 0.9% NaCl Peripheral Flush Adult/Peds IV (06:34)
[2018-07-12] MEDS: glipiZIDE 5 MG Tablet PO (06:38)
[2018-07-12 06:41] LABS: Blast 1 % (0-0); Differential Indicated MANUAL DIFF; Lymphocyte 12 % (19-41); Metamyelocyte 2 % (0-1); Monocyte 6 % (0-10); Neutrophil-Segmented 79 % (47-70); POSITIVE COUNT YES; POSITIVE MORPHOLOGY YES; Platelet Estimate ADEQUATE (ADEQ); Red Cell Morphology NORM C+C NORMAL (NORM C&C); Total Cells Counted 100 (MANUAL DIFF)
[2018-07-12 06:42] LABS: Absolute Lymphocyte Count 1.73 X10^3/ul (0.83-4.51); Absolute Neutrophil Count 11.4 X10^3/uL (2.0-7.7); Lymphocyte # 1.73 X10^3/ul (4.0); Neutrophil # 11.39 X10^3/uL (2.7-7.7)
[2018-07-12 06:45] LABS: Bedside Glucose 339 mg/dL (70-110)
[2018-07-12 07:02] VITALS: PULSE 80; RESP 20; O2SAT 94
[2018-07-12] MEDS: Ipratropium/Albuterol Sulfate 3 ML AMPUL.NEB INHALATION ×2 (07:02→10:46)
[2018-07-12] MEDS: metFORMIN HCl 1,000 MG Tablet 1000 MG PO (08:05)
[2018-07-12 09:00] VITALS: BP 124/82; PULSE 89; RESP 18; TEMP 36.2; O2SAT 95
[2018-07-12] MEDS: Lisinopril 10 MG Tablet PO (09:32)
[2018-07-12] MEDS: Enoxaparin 40 MG/0.4 ML Syringe SC (09:32)
[2018-07-12] MEDS: Azithromycin 250 MG Tablet 500 MG PO (09:32)
--- NOTE | 2018-07-12 10:09 | PCM.DC ---
- Discharge Diagnoses Current Active Problems: Current Active and Chronic Problems Shortness of breath (Acute) You will use the following diet at home:: Calorie/Carbohydrate Controlled (specify 1200, 1400, etc) - 1800 Your food should be the consistency of: Regular Your liquids should be the consistency of: Regular/Thin Discharge Activity: Return to Normal Activity Call your doctor if you observe: Fever of 101 or Higher, Shortness of breath, Dizziness, Fainting spells, Swelling in the ankles, Chest pain, Increased palpitations (irregular heartbeat) Allergies/Adverse Reactions: Allergies No Known Allergies Allergy (Verified 03/12/16 10:53) Medications to take at Discharge Lisinopril [Zestril] 10 mg PO DAILY 06/06/15 Metformin HCl [Glucophage] 1,000 mg PO BIDCM 06/06/15 [place]-3 Fatty Acids/Fish Oil [[place] 3 1,000 mg Softgel] 1 each PO BID 06/06/15 glipiZIDE [Glucotrol] 5 mg PO DAILY@0730 06/06/15 Ascorbic Acid [Vitamin C] 2,000 mg PO DAILY 07/08/18 Gemfibrozil 600 mg PO BID 07/08/18 Albuterol IH (ProAir) [Proair Hfa] 1 - 2 puff INHALATION Q4H PRN PRN #1 inhaler 07/12/18 Prednisone [Deltasone] 40 mg PO DAILY #14 tablet 07/12/18 The following prescriptions were given: Albuterol IH (ProAir) [Proair Hfa] 1 - 2 puff INHALATION Q4H PRN PRN #1 inhaler PRN Reason: Wheezing Prednisone [Deltasone] 40 mg PO DAILY #14 tablet Primary Care Physician: Lucius Saldana MD [Primary Care Provider] - Please follow up with your Primary Care Physician in: 3-5 days Test Results: Test results from this visit will be discussed in further detail at your follow-up appointment, if applicable.
--- NOTE | 2018-07-12 10:17 | DS.PCM_ITS ---
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 Follow-up is recommended. CXR: IMPRESSION: Degenerative changes, as described above. No demonstrated acute cardiopulmonary process. Consults: None Operations: None Procedures: None Summary of Care Provided: Per HPI: The patient is a 62 year old M who was seen in the emergency room at [facility] with chief complaint of shortness of breath and yellow sputum production x4 days. Patient smokes 2 to 3 packs of cigarettes a day but has cut down over the past several days due to shortness of breath. Patient denies any chills or fever, patient denies any alcohol use-he states he is an alcoholic and a former drug abuser (marijuana). Work-up in the emergency room showed an increased area of markings in the left midlung, no overt infiltrate suggestive of pneumonia was noted. Patient's white blood cell count was 11.3, glucose was 161. Patient was given aerosol treatments in the emergency room, his pulse ox on room air while ambulating was 85% and the patient appeared acutely dyspneic on walking-hospitalist service was called for admission. Patient will be admitted to [place] [address] for acute exacerbation of COPD and hypoxia. Hospital Course: 1. Acute COPD exacerbation with respiratory distress and mild hypoxemia/?Tb- 62-year-old male presenting with shortness of breath and yellow sputum production for 4 days. He does smoke 2 to 3 packs of cigarettes a day but is cut out over the last several days prior to admission because of the shortness of breath when he presented to the ER he was on room air satting 85% while ambulating. He was started on IV Solu-Medrol as well as breathing treatments, and he has improved significantly from admission. He is satting in the mid 90s on room air on the day of discharge. He will be transitioned from Solu-Medrol 3 times daily to prednisone 40 mg daily for 7 more days, and he will also be given a prescription for an albuterol inhaler to use at home during this period. His white count did increase on the day of discharge because of the steroids and his blood sugars have been difficult to control because of the steroids I did explain to him that he truly needs to watch his diet when he is at home for the next several days while on the steroids. He needs to follow-up with his primary care physician in 3 to 5 days and would likely need outpatient pulmonology for PFTs once this exacerbation is resolved. Of note there is also some concern for possible TB however chest x-rays were negative for granulomas and his PPD was nonreactive at 5 mm. He will resume his gemfibrozil and his metformin on discharge. I did discuss with him this plan and he expressed understanding and was in agreement with going home today. 2. Acute bronchitis with a history of staph epidermidis bacterial bronchitis-on admission he had a respiratory panel as well as sputum cultures which were negative, urine antigens were also negative. He was started on 500 mg of azithromycin daily and he received his third dose on the morning of discharge. He does not need any more outpatient antibiotics. 3. Type 2 diabetes-since being on the 3 times daily dosing of Solu-Medrol, he has been having elevated blood sugars necessitating insulin dosing while in the hospital. I did discuss with him that because we will be sending him home on the lower dose of steroids his blood sugar should also return closer to normal, and that he can continue his metformin and gemfibrozil. I did ask him to watch what he eats while he is on steroids to minimize any hypoglycemia. 4. His other rectal diagnoses were evaluated and his home medications were continued where appropriate Patient Problems: Active and Suspected Problems Shortness of breath (Acute) Objective: General: Alert, Oriented x3, Cooperative, No apparent distress HEENT: Atraumatic, EOMI, Normocephalic Oral: Moist Mucosa Neck: Supple, No JVD Lungs: Normal air movement, Rhonchi, Wheezes Cardiovascular: Regular rate, Regular Rhythm, Normal S1, Normal S2, No murmurs Abdomen: Soft, Non Tender, Non-Distended, No Hepato-splenomegaly Extremities: No edema, Capillary Refill Less than 3 Seconds Skin: No rashes, No breakdown Neurological: Neuro grossly intact, Sensory exam intact to light touch and pain Psych/Mental Status: Normal Affect, Appropriate - Physical Exam Vital Signs Temp Pulse Resp BP Pulse Ox 97.5 F L 80 20 H 158/57 H 94 07/12/18 03:17 07/12/18 07:02 07/12/18 07:02 07/12/18 03:17 07/12/18 07:02 Oxygen Flow Rate (L/min) 2 Oxygen Delivery Method Room Air Weight: 212 lb Body Mass Index (BMI) 31.3 Finger Stick Blood Glucose 133 Intake and Output for Last 24 Hours 07/10/18 07/11/18 07/12/18 23:59 23:59 23:59 Intake Total 2360 / 2360 950 / 950 700 / 700 Output Total 1999 / 1999 4600 / 4600 1150 / 1150 Balance 360 / 360 -3650 / -3650 -450 / -450 Microbiology Past 72 Hours 07/09/18 14:55 Gram Stain - Final Sputum, Expectorated/Coughed Respiratory Culture - Final Mixed normal respiratory katina. No Haemophilus, Streptococcus pneumoniae, beta-hemolytic Streptococcus or Staphylococcus aureus isolated. 07/09/18 13:29 Respiratory Panel (PCR) - Final Mucosa - Nose 07/09/18 17:15 Streptococcus pneumoniae Antigen (M - Final Urine, Clean Catch 07/09/18 17:15 Legionella Antigen - Final Urine, Clean Catch Laboratory Tests Past 24 Hrs 07/12/18 07/12/18 05:30 05:30 WBC 14.4 H RBC 4.59 L Hgb 14.7 Hct 42.2 MCV 91.9 MCH 32.0 MCHC 34.8 RDW 11.7 RDW Differential 38.8 Plt Count 297 MPV 10.5 Immature Gran % (Auto) ONCOLOGY PHYSICIAN Neut % (Auto) ONCOLOGY PHYSICIAN Lymph % (Auto) ONCOLOGY PHYSICIAN [place] % (Auto) ONCOLOGY PHYSICIAN Eos % (Auto) ONCOLOGY PHYSICIAN Baso % (Auto) ONCOLOGY PHYSICIAN Absolute Neuts (auto) 11.4 H Absolute Lymphs (auto) 1.73 Total Counted 100 Neutrophils % (Manual) 79 H Lymphocytes % (Manual) 12 L Monocytes % (Manual) 6 Metamyelocytes % 2 H Blast Cells % 1 H* Diff Path Review May foll Platelet Estimate ADEQUATE RBC Morphology NORM C+C Sodium 138 Potassium 4.8 Chloride 104 Carbon Dioxide 29.0 Anion Gap 5 BUN 28 H Creatinine 1.14 Estim Creat Clear Calc 68.91 Est GFR (MDRD) Af Amer 84 Est GFR (MDRD) Non-Af 70 BUN/Creatinine Ratio 24.6 H Glucose 373 H Calcium 9.2 POC Glucose 07/12/18 07/11/18 07/11/18 06:32 22:28 15:57 POC Glucose 339 H 390 H 282 H 07/11/18 07/11/18 11:30 06:32 POC Glucose 369 H 333 H Discharge Activity: Return to Normal Activity Call your doctor if you observe: Fever of 101 or Higher, Shortness of breath, Dizziness, Fainting spells, Swelling in the ankles, Chest pain, Increased palpitations (irregular heartbeat) Home Medications: Medications to take at Discharge Lisinopril [Zestril] 10 mg PO DAILY 06/06/15 Metformin HCl [Glucophage] 1,000 mg PO BIDCM 06/06/15 [place]-3 Fatty Acids/Fish Oil [[place] 3 1,000 mg Softgel] 1 each PO BID 06/06/15 glipiZIDE [Glucotrol] 5 mg PO DAILY@0730 06/06/15 Ascorbic Acid [Vitamin C] 2,000 mg PO DAILY 07/08/18 Gemfibrozil 600 mg PO BID 07/08/18 Albuterol IH (ProAir) [Proair Hfa] 1 - 2 puff INHALATION Q4H PRN PRN #1 inhaler 07/12/18 Prednisone [Deltasone] 40 mg PO DAILY #14 tablet 07/12/18 Following Prescrptions Were Given to Patient: Albuterol IH (ProAir) [Proair Hfa] 1 - 2 puff INHALATION Q4H PRN PRN #1 inhaler PRN Reason: Wheezing Prednisone [Deltasone] 40 mg PO DAILY #14 tablet Primary Care Physician: Lucius Saldana MD [Primary Care Provider] - Please follow up with your Primary Care Physician in: 3-5 days Disposition: Home Minutes spent on discharge:: 35 Patient Condition:: Stable Medical Necessity - Tobacco Use Smoking Status: Current every day smoker Tobacco Use: Cigarettes Meaningful Use Info Meaningful Use Diagnoses (Choose all that apply): None applicable Code Visit Inpatient E&M: 70559 Disch Hosp
[2018-07-12 10:46] VITALS: PULSE 80; RESP 20
[2018-07-12 11:29] VITALS: O2SAT 94
[2018-07-12 11:30] LABS: Bedside Glucose 307 mg/dL (70-110)
[2018-07-12 12:44] VITALS: BP 122/60; PULSE 84; RESP 18; TEMP 36.8; O2SAT 95
[2018-07-12 14:50] LABS: Pathologist Review Reviewed
--- NOTE | 2018-07-13 12:55 | CASEMGMT ---
DANI CM DC PHONE CALL DC DATE: 07/12/18 DC Disposition: Home LACE/STRATA: 02/01 Attempted to call pt via home phone. 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 Veronique LANDEROS RN ACM
== END 2018-07-12 12:46 | disposition home or self-care (01) | DRG 140 ==
LOC: ED 15:20 → MS3 16:08
PROVIDERS: Internal Medicine; Admitting Provider Internal Medicine; Emergency Provider Emergency Medicine; Family Provider Family Medicine; PCP Family Medicine; Referring Provider Internal Medicine; Visit Provider Family Medicine
DX: J44.0 Chronic obstructive pulmonary disease with (acute) lower respiratory infection (principal); J20.9 Acute bronchitis, unspecified; J44.1 Chronic obstructive pulmonary disease with (acute) exacerbation; R06.03 Acute respiratory distress; R09.02 Hypoxemia; F10.21 Alcohol dependence, in remission; I10 Essential (primary) hypertension; F17.210 Nicotine dependence, cigarettes, uncomplicated; L57.0 Actinic keratosis; E11.9 Type 2 diabetes mellitus without complications; Z79.84 Long term (current) use of oral hypoglycemic drugs
CPT/HCPCS: 36415; 36600; 71046; 80048; 82803; 82962; 85025; 87070; 87205; 87449; 87633; 93005; 94640; 94667; 94668; 99285; 99406; A4216

== ENCOUNTER 2018-07-28 18:28 | Emergency (ER) | payer MEDICAID, SELFPAY ==
[2018-07-08 17:11] VITALS: BMI 31.3
[2018-07-28 18:49] VITALS: BP 134/62; PULSE 94; RESP 16; TEMP 36.7; O2SAT 95; BMI 28.0
[2018-07-28 19:48] VITALS: BP 137/71; PULSE 86; RESP 16; O2SAT 97
--- NOTE | 2018-07-28 20:25 | EKG12_ITS ---
Test Reason : Blood Pressure : / mmHG Vent. Rate : 076 BPM Atrial Rate : 076 BPM P-R Int : 140 ms QRS Dur : 082 ms QT Int : 366 ms P-R-T Axes : 068 072 056 degrees QTc Int : 411 ms Normal sinus rhythm Normal ECG Confirmed by FROYLAN FERREIRA, ALEM ([id number]), make up editor VIVIEN LEWIS ([id number] on 08/01/2018 1:28:48 PM Referred By: DAGOBERTO Confirmed By:ALEM GALEANO MD
--- NOTE | 2018-07-28 20:30 | RAD_ITS ---
STUDY: X-RAY CHEST REASON FOR EXAM: Male, 62 years old. Hyperglycemia TECHNIQUE: AP portable COMPARISON: July 10, 2018 FINDINGS: There is mild interstitial thickening in the lower lobes. There is no focal lobar infiltration. There is no demonstrated pleural abnormality. Normal size heart. Normal mediastinum and guerita. Normal visualized pulmonary arteries. Normal visualized aortic arch and descending thoracic aorta. Normal visualized thoracic spine. Normal visualized clavicles, and shoulders. Old healed fractures of the left ribs There is no demonstrated abnormality of the visualized soft tissue structures of the upper abdomen. No significant change since prior exam RAD/Chest 1 View (Portable) IMPRESSION: Mild chronic interstitial changes. No acute disease Electronically Signed: Alvaro Alvarado MD at 20:56 EDT , Service support ,
[2018-07-28 21:11] LABS: Blood Gas Specimen Type VEN; O2 Delivery Device Room Air; VBG BASE EXCESS 4 mmol/L (-1.0-3.5); VBG Bicarbonate 30 mmol/L (22-26); VBG Oxygen Content 32 mmol/L (23-33); VBG PO2 9 mmHg (25-40); VBG SO2 7 % (50-70); VBG pCO2 59.8 mmHg (41-51); VBG pH 7.31 (7.32-7.42)
[2018-07-28 21:14] VITALS: BP 153/67; PULSE 74; RESP 18; O2SAT 97
[2018-07-28 21:15] LABS: Bedside Glucose 336 mg/dL (70-110)
[2018-07-28 21:19] LABS: Absolute Lymphocyte Count 2.08 X10^3/ul (0.83-4.51); Absolute Neutrophil Count 6.9 X10^3/uL (2.0-7.7); Basophil# 0.01 X10^3/uL; Basophil% 0.1 % (0-1); Eosinophil# 0.08 X10^3/uL; Eosinophils% 0.8 % (0-5); Hematocrit 45.3 % (40-54); Hemoglobin 15.7 g/dl (13.0-16.5); Lymphocyte # 2.08 X10^3/ul (4.0); Lymphocyte % 20.9 % (19-41); Mean Corp Hgb Conc 34.7 g/gl (32-36); Mean Corpuscular Hgb 33.1 pg (27.0-32.0); Mean Corpuscular Volume 95.6 fL (80-94); Monocyte# 0.91 X10^3/uL; Monocyte% 9.1 % (0-10); Neutrophil # 6.86 X10^3/uL (2.7-7.7); Neutrophil % 68.9 % (47-70); POSITIVE COUNT NO; POSITIVE DIFFERENTIAL NO; POSITIVE MORPHOLOGY NO; Platelet Count 179 K/mm3 (150-450); RBC Distribution Width CV 12.7 % (11.6-14.6); RBC Distribution Width SD 44.5 fl (35.1-43.9); Red Blood Count 4.74 M/mm3 (4.6-6.2)
[2018-07-28 21:31] LABS: Anion Gap 7 (5-15); BUN 30 mg/dL (7-18); Calcium,Total 9.2 mg/dL (8.5-10.1); Chloride 98 mmol/L (98-107); Creatinine, Serum 1.43 mg/dL (0.70-1.30); EST Glomerular Filtration Rate 54 mL/min (>60); Est Glom Filt Rate - Afr Amer 65 mL/min (>60); Estimated Creatinine Clearance 54.93 ml/min; Glucose 340 mg/dL (74-106); Potassium 4.1 mmol/L (3.5-5.1); Sodium Level 135 mmol/L (136-145)
--- NOTE | 2018-07-28 23:32 | ED.VIS.GEN ---
History of Present Illness Chief Complaint: General Illness Informant: Patient Limited by: - - Needs to be repeatedly aroused. Onset: - - Days if not longer Context: Gradual Onset Timing: Continuous Quality: Patient complains of shortness of breath and elevated blood sugar. Location: Not applicable Current Severity: Moderate Maximum Severity: Moderate Worsened by: Nothing Relieved by: Nothing Associated Symptoms: Intermittent blurred vision and intermittent increased urination, polydipsi Narrative: Patient is a 62-year-old male with history of type 2 diabetes requiring insulin, COPD who presents because of elevated blood sugar and shortness of breath. Patient is not a good informant. Patient needs to be aroused repeatedly to answer questions. He does report intermittent blurred vision. He does report polyuria and polydipsia. He does report feeling lightheaded when he stands and dry mouth. He describes 1 to 2 seconds of chest pain. He denies productive cough. He denies vomiting, diarrhea, black or maroon stool. 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 Denies: Chills, Fever, Subjective, Weight loss Eyes: Reports: Blurred Vision - bilaterally. Denies: Visual changes - bilaterally, Diplopia ENT: Denies: Bilateral ear pain, Rhinorrhea, Sore throat Cardiovascular: Reports: Chest pain. Denies: Palpitations, Heart racing Respiratory: Reports: Dyspnea, Cough. Denies: Sputum, Dyspnea on exertion, Orthopnea, Paroxysmal nocturnal dyspnea Gastrointestinal: Reports: Nausea. Denies: Abdominal pain, Vomiting, Diarrhea, Melena, Hematochezia Genitourinary: Reports: Frequency. Denies: Dysuria, Hematuria Musculoskeletal: Denies: Myalgias, Arthralgias, Neck pain, Back pain, Swelling, Extremity Pain, -, - Skin: Denies: Rash, Wounds Neurological: Reports: Weakness. Denies: Headache, Parasthesia Psych: Reports: Depression Endocrine: Reports: Polyuria, Polydipsia. Denies: Heat intolerance, Cold intolerance Hematologic: Denies: Easy bruising, Easy bleeding Allergy: Reports: Uticaria Physical Exam Vital Signs/Narrative: Vital Signs Pulse Resp BP Pulse Ox 07/28/18 21:14 74 18 153/67 H 97 07/28/18 19:48 86 16 137/71 H 97 Inital Vital Signs reviewed: Yes General: Well nourished, Well developed, Unkempt, - - Mild tachypnea in spite of triage respiratory rate of 16 Head: Normocephalic, Atraumatic Eyes: Perrl, EOMI. Negative for: Pale conjunctiva, Scleral icterus, - ENT: No rhinorrhea, TM's clear, Dry mucous membranes Neck: Supple, Nontender, No lymphadenopathy, No JVD Cardiovascular: Regular rate, Regular rhythm, No murmurs, Normal S1, Normal S2 Respiratory: CTA bilaterally, Chest nontender Abdomen: Soft, Nontender, Nondistended, Normal bowel sounds, No masses Back: Nontender, Normal Inspection Extremities: Nontender, No edema Skin: Normal color, No rash, No Trauma. Negative for: Cyanosis, Diaphoresis, Jaundice Neurological: Cranial nerves II-XII grossly intact, Normal Strength, Normal Sensation, Normal DTR. Negative for: Alert, Oriented x3, Normal Gait Psychological: Normal affect Diagnostic/Tx/Re-eval Impressions Chest X-Ray 07/28/18 20:30 IMPRESSION: Mild chronic interstitial changes. No acute disease Electronically Signed: Alvaro Alvarado MD at 20:56 EDT , Service support , 07/28/18 20:30 Chest 1 View (Portable) [RAD] Stat Laboratory Results 07/28/18 07/28/18 07/28/18 21:00 21:00 21:00 WBC 10.0 RBC 4.74 Hgb 15.7 Hct 45.3 MCV 95.6 H MCH 33.1 H MCHC 34.7 RDW 12.7 RDW Differential 44.5 H Plt Count 179 MPV 11.0 Immature Gran % (Auto) 0.200 Neut % (Auto) 68.9 Lymph % (Auto) 20.9 Morgan % (Auto) 9.1 Eos % (Auto) 0.8 Baso % (Auto) 0.1 Absolute Neuts (auto) 6.9 Absolute Lymphs (auto) 2.08 Total Counted Not Reportable Specimen Type VBG pH VBG pO2 VBG O2 Sat (Calc) VBG O2 Content VBG Base Excess POC Mix VBG pCO2 Pt Tmp O2 Delivery Device Blood Gas Notified Whom Sodium 135 L Potassium 4.1 Chloride 98 Carbon Dioxide 30.0 Anion Gap 7 BUN 30 H Creatinine 1.43 H Estim Creat Clear Calc 54.93 Est GFR (MDRD) Af Amer 65 Est GFR (MDRD) Non-Af 54 L BUN/Creatinine Ratio 21.0 H Glucose 340 H Calcium 9.2 Acetone Level NEGATIVE POC Glucose 07/28/18 07/28/18 21:03 21:10 WBC RBC Hgb Hct MCV MCH MCHC RDW RDW Differential Plt Count MPV Immature Gran % (Auto) Neut % (Auto) Lymph % (Auto) Morgan % (Auto) Eos % (Auto) Baso % (Auto) Absolute Neuts (auto) Absolute Lymphs (auto) Total Counted Specimen Type SAHIL VBG pH 7.31 L VBG pO2 9 L* VBG O2 Sat (Calc) 7 L VBG O2 Content 32 VBG Base Excess 4 H POC Mix VBG pCO2 Pt Tmp 59.8 H O2 Delivery Device Room Air Blood Gas Notified Whom ED Sodium Potassium Chloride Carbon Dioxide Anion Gap BUN Creatinine Estim Creat Clear Calc Est GFR (MDRD) Af Amer Est GFR (MDRD) Non-Af BUN/Creatinine Ratio Glucose Calcium Acetone Level POC Glucose 336 H - Rhythm Strip Rhythm Strip: Sinus Rhythm Rate: 82 Ectopy: None - EKG Initial EKG Interpretation: Sinus Rhythm - Ventricular rate is 76. EKG is normal. SC interval, cures duration, QT and axis are all normal. - Medical Decision Making With tachypnea, polyuria, polydipsia and high blood sugar reading concern patient may have DKA. DKA order set was initiated. Blood sugar is elevated however his anion gap is normal. VBG reveals an acidosis and most likely respiratory acidosis. A ABG was ordered and is pending. Chest x-ray reveals no acute process compared to old. There is evidence of chronic changes. Basic mental panel was obtained to assess electrolytes, CO2 and anion gap, renal function. White count to assess H&H as well as for leukocytosis. ABG reveals no acid-base disturbance and slight increase in a gradient. He was reassessed at 0035. He is now sitting up in a chair eating food that he brought from home. He states he feels better. He was treated with subQ insulin for his hyperglycemia. ED Disposition - Plan for ED Patient: Disposition: Home or Assisted Living Diagnosis: Hyperglycemia due to type 2 diabetes mellitus, Mental status change resolved, Chronic shortness of breath Instructions: ED Hyperglycemia Diabetic, ED Dyspnea Shortness of Breath Referrals: Lucius Saldana MD [Primary Care Provider] - 3-5 Days
[2018-07-28] MEDS: Albuterol 2.5 MG/3 ML VIAL.NEB. INHALATION (23:50)
[2018-07-28] MEDS: Ipratropium/Albuterol Sulfate 3 ML AMPUL.NEB INHALATION (23:50)
[2018-07-28 23:51] VITALS: PULSE 76; RESP 18
[2018-07-28 23:57] VITALS: BP 117/77; PULSE 79; RESP 14; O2SAT 98
[2018-07-28] MEDS: Insulin Lispro 100 UNIT/ML INSULN.PEN 7 UNIT SC (23:58)
[2018-07-29 00:47] VITALS: BP 117/89; PULSE 73; RESP 14; O2SAT 98
[2018-07-29 08:31] LABS: Allen Test POS; Base Excess -1 mmol/L (-2 to +2); Blood Gas Specimen Type ART; O2 Delivery Device Room Air; PO2 80 mmHG (75-100); SITE L Radial; SO2 95 % (95-99); Total Carbon Dioxide 25 mmol/L; pCO2 41.5 mmHg (35-45); pH 7.37 (7.35-7.45)
== END 2018-07-29 00:48 | disposition home or self-care (01) ==
PROVIDERS: Emergency Provider Emergency Medicine; Family Provider Family Medicine; PCP Family Medicine
DX: E11.65 Type 2 diabetes mellitus with hyperglycemia (principal); R41.82 Altered mental status, unspecified; R07.9 Chest pain, unspecified; J44.9 Chronic obstructive pulmonary disease, unspecified; I10 Essential (primary) hypertension; F17.200 Nicotine dependence, unspecified, uncomplicated; Z79.4 Long term (current) use of insulin; Z79.899 Other long term (current) drug therapy
CPT/HCPCS: 36600; 71045; 80048; 82009; 82803; 82962; 85025; 93005; 94640; 99284; A4216

== ENCOUNTER 2020-10-20 10:18 | Observation (INO) | payer MEDICAID, SELFPAY ==
[2020-10-20] VITALS (12 sets, daily range): BP systolic 144–179; BP diastolic 64–89; PULSE 71–94; RESP 16–22; TEMP 35.4–37.3; O2SAT 92–97; BMI 32.5; BMI 28.3
--- NOTE | 2020-10-20 10:36 | RAD_ITS ---
STUDY: X-RAY CHEST REASON FOR EXAM: Male, 64 years old. No deficit. Question stroke. TECHNIQUE: Single AP portable view of the chest. COMPARISON: 07/28/2018. FINDINGS: The lungs are well-expanded. There is no new mass or infiltrate. There is no demonstrated pleural abnormality. Normal size heart. Normal mediastinum and guerita. Normal visualized pulmonary arteries. Normal visualized aortic arch and descending thoracic aorta. No osseous changes. There is no demonstrated abnormality of the visualized soft tissue structures of the upper abdomen. RAD/Chest 1 View IMPRESSION: No acute cardiopulmonary disease or interval change. Electronically Signed: Gabriel Spencer DO at 11:35 EDT Tel [phone], Service support ,
--- NOTE | 2020-10-20 10:36 | CT_ITS ---
We are attempting to reach an attending provider to discuss findings. An addendum with communication details will be sent when the communication is complete. STUDY: CTA HEAD AND NECK WITH CONTRAST REASON FOR EXAM: Male, 64 years old. Neuro deficit, acute, stroke suspected RADIATION DOSAGE (If Supplied By Facility): CTDIvol = ( 28.65 ) mGy, DLP = ( 1699.95 ) mGycm TECHNIQUE: CT angiography was performed with a multi-detector CT scanner. Data acquisition was obtained from the skull base through the vertex following intravenous administration of . MIP images were reconstructed from the axial data set. Post-processing of the angiographic images was performed, with multiplanar reformation and 3D reconstruction. Individualized dose optimization techniques were used for this CT. COMPARISON: MRI of the brain, 02/11/2015 FINDINGS: Normal bilateral petrous carotid arteries. There is calcified plaque formation of the right cavernous carotid artery, without a cross-sectional luminal stenosis. Normal left cavernous carotid artery with a normal supraclinoid bifurcation. Normal right A1 segments of the anterior cerebral artery. Normal left A1 segments of the anterior cerebral artery. Normal intact anterior communicating artery (ACOM). Normal bilateral A2 segments of the anterior cerebral arteries. Normal right M1 and M2 segments of the middle cerebral arteries, with a normal M1 bifurcation. Normal left M1 and M2 segments of the middle cerebral arteries, with a normal M1 bifurcation. Normal right posterior communicating artery (PCOM). Normal left posterior communicating artery (PCOM). Normal bilateral vertebral arteries. Normal basilar artery with a normal basilar bifurcation. The visualized bilateral superior cerebellar (SCA) arteries are normal. Normal bilateral P1, P2 and visualized P3 segments of the posterior cerebral arteries. There is no demonstrated aneurysm of the [place] of [place]. There is a small area of low attenuation in the white matter of the right anterior parietal vertex as seen on image 35 of series 2. AORTIC ARCH: Normal visualized aortic arch. Normal origins of the brachiocephalic, left common carotid, and left subclavian arteries. RIGHT CAROTID ARTERIES: Normal right common carotid artery (CCA). Minimal calcific plaque in the carotid bulb without significant stenosis. Normal origin of the right internal carotid (ICA) artery without a hemodynamically significant stenosis. Normal visualized cervical portion of the right internal carotid artery. Normal origin of the right external carotid artery (ECA). LEFT CAROTID ARTERIES: Normal left common carotid artery (CCA). No calcific plaque at the carotid bulb without stenosis. Normal origin of the left internal carotid (ICA) artery without a hemodynamically significant stenosis. Normal visualized cervical portion of the left internal carotid artery. Normal origin of the left external carotid artery (ECA). VERTEBRAL ARTERIES: Normal bilateral vertebral arteries. CT/STROKE CTA Head AND Neck W/Con IMPRESSION: 1. Normal CTA Head. 2. Mild atherosclerotic plaque of the bilateral carotid bulbs without significant stenosis. 3. Normal vertebral arteries. 4. The low-attenuation focus in the right parietal vertex. This is thought to be remote. Electronically Signed: Gabriel Spencer DO at 12:16 EDT Tel [phone], Service support ,
--- NOTE | 2020-10-20 10:36 | EKG12_ITS ---
Test Reason : NEURO Blood Pressure : / mmHG Vent. Rate : 075 BPM Atrial Rate : 075 BPM P-R Int : 140 ms QRS Dur : 084 ms QT Int : 372 ms P-R-T Axes : 078 080 058 degrees QTc Int : 415 ms Normal sinus rhythm Normal ECG Confirmed by ARMINDA FERREIRA, GIOVANNY ([id number]), commissioning editor LUCA CHOWDARY ([id number]) on 10/24/2020 10:28:48 AM Referred By: RU Confirmed By:GIOVANNY HILLIARD MD
--- NOTE | 2020-10-20 10:37 | EDS_ITS ---
HPI History of Present Illness Chief Complaint: Neuro S/Sx Detail of Chief Complaint: Paresthesias the left hand and left face that started 1 to 2 days ago Informant: patient Narrative Narrative: Patient complains of paresthesias that he noticed 1 or 2 days ago. Patient states that he try to poke his finger on the left hand to check his blood sugar and noted that he had decreased sensation. Patient also noted that the left side of his face was numb and felt differently than the right side of his face. Patient states that the left side of his lips were also numb. He denies headache or head trauma. Has not had symptoms like this before. He denies weakness or difficulty with speech. He denies any visual changes. Patient states there is a family history of brain aneurysms. Patient is a smoker. Prior similar symptoms: No PFSH PFS Medical History (Updated 10/20/20 @ 12:[address] Erin Dobbins, ) Afib Aortic arch dissection Cervical vertebral fracture COPD (chronic obstructive pulmonary disease) Diabetes Emphysema lung Laceration of adrenal gland Left hand fracture Perforated bowel Home Medications glipizide 5 mg PO DAILY@0730 06/06/15 [History Last Taken 07/08/18] lisinopril 10 mg PO DAILY 06/06/15 [History Last Taken 07/08/18] metformin 1,000 mg PO BIDCM 06/06/15 [History Last Taken 07/08/18] omega-3 fatty acids-fish oil 1 ea PO BID 06/06/15 [History Last Taken 07/08/18] ascorbic acid (vitamin C) [Vitamin C] 2,000 mg PO DAILY 07/08/18 [History Last Taken 07/08/18] gemfibrozil 600 mg PO BID 07/08/18 [History Last Taken 07/08/18] albuterol sulfate [ProAir HFA] 1 - 2 puff INHALATION Q4H PRN PRN #1 inhaler 07/12/18 [Rx Last Taken Unknown] prednisone [Deltasone] 40 mg PO DAILY #14 tab 07/12/18 [Rx Last Taken Unknown] Allergy/AdvReac Type Severity Reaction Status Date / Time No Known Allergies Allergy Verified 10/20/20 10:19 Surgical History (Updated 10/20/20 @ 11:17 by Chi Zhu) Previous back surgery Social History Smoking Status: Current every day smoker tobacco type: cigarettes ROS ROS ED Constitutional Constitutional ED: Reports systems reviewed and no addt'l complaints, except as documented; Denies body ache(s), change in weight or chills Eyes Eyes: Denies acute decrease in peripheral vision, change in vision, double vision or loss of vision ENT ENT ED: Reports none; Denies ear pain, lip swelling, loss taste/smell, neck pain, otalgia or sore throat Cardiovascular Cardiovascular: Reports none; Denies abdominal pain, chest pain with activity, leg edema, lightheadedness, palpitations, rapid heart rate or syncope Respiratory/Chest Respiratory/Chest: Reports none; Denies change in mental status, dry cough, dyspnea, hemoptysis, shortness of breath at rest or shortness of breath with exertion Gastrointestinal Gastrointestinal: Reports none; Denies abdominal pain, change in stool character, diarrhea, hematemesis, hematochezia, melena, rectal bleeding or vomiting Genitourinary Genitourinary ED: Reports none; Denies abdominal discomfort, anuria, dysuria, genital pain or polyuria Musculoskeletal Musculoskeletal: Reports none; Denies arthralgias, back pain, difficulty walking, extremity pain, muscle weakness or myalgias Integumentary Reports none; Denies abscess or rash Neurologic Neurologic: Reports none and paresthesias; Denies abnormal gait, confusion, focal weakness, frequent falls, headache(s), loss of vision, numbness, radicular pain, vertigo or weakness Psychiatric Psychiatric: Reports systems reviewed and no addt'l complaints, except as documented and none; Denies behavioral changes, confusion, difficulty concentrating, hallucinations, suicidal ideation, tactile hallucinations or visual hallucinations Endocrine Endocrinology: Denies none, cold intolerance, excessive sweating, fatigue or heat intolerance Hematologic/Lymphatic Hematologic/Lymphatic: Reports none; Denies anemia, easy bleeding or easy bruising Allergic/Immunologic Allergic/Immunologic ED: Denies as per HPI, none, lip swelling, mouth swelling, throat swelling, tongue swelling or hives EXAM Physical Exam Const Vital Signs: 10/20/20 10:20 10/20/20 11:07 10/20/20 11:30 Temperature 95.8 F L Temperature Source Temporal Pulse Rate 94 73 81 Respiratory Rate 16 19 H 20 H Blood Pressure 150/89 H 164/74 H 179/88 H Blood Pressure Mean 109 104 118 Pulse Ox 95 95 96 Oxygen Delivery Method Room Air Room Air Room Air 10/20/20 12:00 Temperature Temperature Source Pulse Rate 80 Respiratory Rate 17 Blood Pressure 167/68 H Blood Pressure Mean 101 Pulse Ox Oxygen Delivery Method Positive well nourished and well developed General Appearance ED: well developed and NAD HEENT Reports TM's clear and moist mucous membranes normocephalic and atraumatic; Negative for trauma or tenderness Tympanic Membrane ED: Yes TM's clear Eyes PERRL and EOMs intact bilaterally General Eye ED: Negative for pale conjunctiva or scleral icterus Neck no lymphadenopathy, supple and no JVD General: Negative for tenderness Chest Wall inspection of chest normal and palpation of chest normal Chest: Negative for tenderness Resp normal respiratory effort and clear to auscultation bilaterally Effort and Inspection: Negative for respiratory distress or pain with movement Auscultation: Negative for rhonchi, wheezes or diminished lung sounds Cardio regular rate, regular rhythm, S1 normal heart sound, S2 normal heart sound and no murmurs Peripheral Pulses: pulses 2+ throughout GI normal to inspection, nondistended, normoactive bowel sounds, soft to palpation, non-tender, non-distended and no masses Back/Spine no CVA tenderness and no thoracic nor lumbar tenderness Extremity normal to inspection General Extremety ED: Negative for edema General Extremity: Negative for edema Neuro oriented x3, CN's II-XII intact bilaterally and gait normal Neuro Narrative: Patient with decrease sensation to the left side of the face and left hand. No focal deficits noted. No facial droop noted. NIH stroke scale was a 1. Sensorium / Orientation: awake, alert, oriented to person, oriented to place and oriented to time Sensory Exam: sensory level loss detected Motor Exam: strength 5/5 throughout and strength abnormal Psych mental status grossly normal Skin no rashes or lesions noted and no wounds STROKE Vital Signs/Narrative: Vital Signs Temp Pulse Resp BP Pulse Ox 10/20/20 12:00 80 17 167/68 H 10/20/20 11:30 81 20 H 179/88 H 96 10/20/20 11:07 73 19 H 164/74 H 95 10/20/20 10:20 95.8 F L 94 16 150/89 H 95 MDM MDM MDM Narrative Medical decision making narrative: Patient had no significant findings on CTA of the head and neck. Patient noted to have chronic microvascular changes. Suspect patient likely had small stroke given continued paresthesias to left face and left hand. Will discuss with hospitalist evaluate for admission. Lab Data Attestation: I reviewed the patient's lab results. Labs: Laboratory Results - last 24 hr 10/20/20 10/20/20 10/20/20 11:11 11:11 11:11 WBC 7.8 RBC 4.63 Hgb 15.3 Hct 43.2 MCV 93.3 MCH 33.0 H MCHC 35.4 RDW Std Deviation 41.3 RDW Coeff of Ricci 12.0 Plt Count 180 MPV 10.5 Immature Gran % (Auto) 0.400 Neut % (Auto) 65.0 Lymph % (Auto) 23.7 Mcdonough % (Auto) 8.5 Eos % (Auto) 1.9 Baso % (Auto) 0.5 Absolute Neuts (auto) 5.1 Absolute Lymphs (auto) 1.86 Nucleated RBC % 0 PT 11.9 INR 0.9 APTT 27.0 Sodium 140 Potassium 3.6 Chloride 106 Carbon Dioxide 27.0 Anion Gap 7 BUN 21 H Creatinine 0.97 Estim Creat Clear Calc 78.96 Est GFR (MDRD) Af Amer 100 Est GFR (MDRD) Non-Af 83 BUN/Creatinine Ratio 21.6 H Glucose 286 H Calcium 8.6 Troponin I High Sens 8 Radiography Diagnostic Testing: Radiology Impression Chest X-Ray 10/20/20 10:36 IMPRESSION: No acute cardiopulmonary disease or interval change. Electronically Signed: Gabriel Spencer DO at 11:35 EDT Tel [phone], Service support , Head/Neck CTA 10/20/20 10:36 IMPRESSION: 1. Normal CTA Head. 2. Mild atherosclerotic plaque of the bilateral carotid bulbs without significant stenosis. 3. Normal vertebral arteries. 4. The low-attenuation focus in the right parietal vertex. This is thought to be remote. Electronically Signed: Gabriel Spencer DO at 12:16 EDT Tel [phone], Service support , EKG Initial EKG: Attestation: I personally reviewed and interpreted this EKG as follows: Comments: Sinus rhythm with a ventricular rate 75 bpm with no acute ST segment changes Stroke Documentation Questions Stroke Team Activated: No Discharge Plan Triage Chief Complaint: Neuro S/Sx ED Provider: Erin Dobbins Dx/Rx/DC Orders Clinical Impression: Acute CVA (cerebrovascular accident), Paresthesias Prescriptions: No Action metformin 500 MG tablet 1,000 mg PO BIDCM RF: 0 lisinopril 10 MG tablet 10 mg PO DAILY RF: 0 glipizide 5 MG tablet 5 mg PO DAILY@0730 RF: 0 omega-3 fatty acids-fish oil 1 EACH capsule 1 ea PO BID RF: 0 gemfibrozil 600 tablet 600 mg PO BID RF: 0 ascorbic acid (vitamin C) [Vitamin C] 500 MG Tab.Chew 2,000 mg PO DAILY RF: 0 prednisone [Deltasone] 20 MG tablet 40 mg PO DAILY Qty: 14 RF: 0 albuterol sulfate [ProAir HFA] 1 PUFF inhaler 1 - 2 puff inhalation Q4H PRN PRN (Reason: Wheezing) Qty: 1 RF: 0 Primary Care Provider: Lucius Saldana Referrals: Lucius Saldana MD [Primary Care Provider] - Disposition Disposition: Acute Care Hospital [facility]
[2020-10-20 11:18] LABS: Absolute Lymphocyte Count 1.86 X10^3/uL (0.83-4.51); Absolute Neutrophil Count 5.1 X10^3/uL (2.0-7.7); Basophil# 0.04 X10^3/uL; Basophil% 0.5 % (0-1); Eosinophil# 0.15 X10^3/uL; Eosinophils% 1.9 % (0-5); Hematocrit 43.2 % (40-54); Hemoglobin 15.3 g/dL (13.0-16.5); Lymphocyte # 1.86 X10^3/ul (0.83-4.51); Lymphocyte % 23.7 % (19-41); Mean Corp Hgb Conc 35.4 g/dL (32-36); Mean Corpuscular Volume 93.3 fL (80-94); Mean Platelet Vol. 10.5 fl (6.2-12.0); Monocyte# 0.67 X10^3/uL; Monocyte% 8.5 % (0-10); NRBC Flagged by Analyzer 0 % (0-5); Neutrophil # 5.09 X10^3/uL (2.7-7.7); Platelet Count 180 K/mm3 (150-450); RBC Distribution Width SD 41.3 fl (35.1-43.9); Red Blood Count 4.63 M/mm3 (4.6-6.2); White Blood Count 7.8 K/mm3 (4.4-11.0)
[2020-10-20 11:26] LABS: International Normalized Ratio 0.9; Prothrombin Time (Protime)PT. 11.9 SECONDS (11.7-14.9)
[2020-10-20] MEDS: 0.9% Normal Saline 1,000 ML 100 ML IV (11:28)
[2020-10-20 11:35] LABS: Anion Gap 7 (5-15); BUN 21 mg/dL (7-18); BUN/Creat Ratio 21.6 RATIO (10-20); Calcium,Total 8.6 mg/dL (8.5-10.1); Chloride 106 mmol/L (98-107); Creatinine, Serum 0.97 mg/dL (0.70-1.30); EST Glomerular Filtration Rate 83 mL/min (>60); Est Glom Filt Rate - Afr Amer 100 mL/min (>60); Estimated Creatinine Clearance 78.96 ml/min; Glucose 286 mg/dL (74-106); Potassium 3.6 mmol/L (3.5-5.1); Sodium Level 140 mmol/L (136-145); Troponin-I HS 8 pg/mL (3.0-78.0)
--- NOTE | 2020-10-20 14:27 | PCS.PANDOC ---
PANDEMIC DOCUMENTATION INITIATED: Date: 10/14/2020 Time: 1426 pandemic charting in effect
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
--- NOTE | 2020-10-20 15:08 | ECHOD_ITS ---
Reason For Study: TIA/CVA Procedure This was a 2D Doppler, Color Flow transthoracic echocardiogram. Exam performed portable in patient room. Left Ventricle Normal LV size. Left ventricular systolic function is normal. The estimated ejection fraction is 60 %. Stage 1 diastolic dysfunction. No regional wall motion abnormalities noted. Right Ventricle Normal RV size. Normal systolic function. Atria Normal left atrium. Normal right atrium. Bubble contrast study negative for right to left interatrial shunt. Mitral Valve Normal mitral valve. Tricuspid Valve Normal tricuspid valve. Aortic Valve Trisinus/trileaflet aortic valve. Mild focal aortic valve calcification. Pulmonic Valve Normal pulmonic valve. Great Vessels Normal aortic root. The pulmonary artery is normal size. Normal inferior vena cava. Pericardium/Pleural No pericardial effusion. Medication Performed a rapid injection of agitated mix of 9 cc saline and 1cc air to assess for atrial septal defect. MMode/2D Measurements & Calculations LVIDd: 4.3 cm IVSd: 1.1 cm Ao root diam: 3.0 cm LVIDs: 3.5 cm LVPWd: 1.1 cm RVDd: 2.8 cm FS: 18.5 % LAV(MOD-bp): 39.4 ml LVAd ap4: 27.9 cm2 LVAd ap2: 35.4 cm2 LAV(MOD-bp) Indexed: 19.4 ml/m2 LVLd ap4: 8.2 cm LVLd ap2: 9.0 cm LAV(MOD-sp2): 46.9 ml EDV(MOD-sp4): 78.9 ml EDV(MOD-sp2): 118.7 ml LAV(MOD-sp4): 29.0 ml EDV(sp4-el): 80.9 ml EDV(sp2-el): 118.2 ml LVAs ap4: 16.8 cm2 LVAs ap2: 20.1 cm2 LVLs ap4: 6.9 cm LVLs ap2: 8.0 cm ESV(MOD-sp4): 34.8 ml ESV(MOD-sp2): 44.6 ml ESV(sp4-el): 34.7 ml ESV(sp2-el): 42.7 ml EF(MOD-sp4): 55.9 % EF(MOD-sp2): 62.4 % EF(sp4-el): 57.1 % SV(MOD-sp4): 44.1 ml SV(MOD-sp2): 74.1 ml SV(sp4-el): 46.2 ml LA A4 area: 12.1 cm2 LA dimension(2D): 4.1 cm RA A4 area: 11.7 cm2 Time Measurements MV dec time: 0.24 sec Doppler Measurements & Calculations MV E max doroteo: 64.2 cm/sec Lat Peak E' Doroteo: 11.7 cm/sec Med Peak E' Doroteo: 7.2 cm/sec MV A max doroteo: 77.5 cm/sec E/E' lat: 5.5 E/E' med: 8.9 MV E/A: 0.83 Ao V2 max: 137.4 cm/sec LV V1 max: 92.7 cm/sec Ao max P.6 mmHg LV V1 max P.4 mmHg ECHO/Echo Complete Interpretation Summary Normal LV size. Left ventricular systolic function is normal. The estimated ejection fraction is 60 %. Stage 1 diastolic dysfunction. Bubble contrast study negative for right to left interatrial shunt. Ordering Physician: Danilo Gordon Referring Physician: Lucius Saldana Performed By: Flori Singh RDCS
[2020-10-20] MEDS: Insulin Lispro 100 UNIT/ML INSULN.PEN SC (16:12)
[2020-10-20] MEDS: Aspirin 325 MG Tablet PO (16:13)
[2020-10-20 16:21] LABS: Bedside Glucose 209 mg/dL (70-110)
[2020-10-20 16:50] LABS: Troponin-I HS 9 pg/mL (3.0-78.0)
[2020-10-20 21:56] LABS: Bedside Glucose 265 mg/dL (70-110)
[2020-10-21] VITALS (13 sets, daily range): BP systolic 123–160; BP diastolic 61–77; PULSE 61–81; RESP 12–18; TEMP 36.2–37; O2SAT 94–97
[2020-10-21 06:36] LABS: Cholesterol 266 mg/dL (200); High Density Lipoprotein 33 mg/dL; Triglycerides 363 mg/dL; Very Low Density Lipoprotein 73 mg/dL (5-40)
[2020-10-21] MEDS: Gemfibrozil 600 MG Tablet PO ×2 (06:40→16:37)
[2020-10-21] MEDS: glipiZIDE 5 MG Tablet PO (06:40)
[2020-10-21] MEDS: Insulin Lispro 100 UNIT/ML INSULN.PEN SC ×3 (06:41→16:37)
[2020-10-21 06:51] LABS: Bedside Glucose 206 mg/dL (70-110)
--- NOTE | 2020-10-21 08:30 | MRI_ITS ---
We are attempting to reach an attending provider to discuss findings. An addendum with communication details will be sent when the communication is complete. EXAM: MR HEAD WITHOUT INTRAVENOUS CONTRAST : 1955 CLINICAL INDICATION: left side numbness TECHNIQUE: Multiplanar and multisequence MR images of the brain were obtained without intravenous contrast. This report was created using [employer] report generation technology. COMPARISON: CT brain October 20, 2020 FINDINGS: BRAIN AND EXTRA-AXIAL SPACES: 9 mm focus of restricted diffusion noted within the right thalamus consistent with an acute lacunar infarct. Multiple foci of increased T2 signal intensity within the cerebral white consistent with microvascular disease. No intra- or extra-axial hemorrhage. No intracranial mass or mass effect. Posterior fossa structures are unremarkable. Ventricles are appropriate for age. No hydrocephalus. Basal cisterns are patent. SELLA: Unremarkable. Normal sella turcica, pituitary gland, infundibular stalk, optic chiasm and hypothalamus. AUDITORY SYSTEM: Unremarkable. The internal auditory canals are patent. BONES/JOINTS: Unremarkable. No discrete lytic or blastic abnormalities. SINUSES: Unremarkable as visualized. Clear. MASTOID AIR CELLS: Unremarkable as visualized. Clear. ORBITS: Unremarkable as visualized. Both globes, extraocular muscles, optic nerves and retrobulbar fat appear unremarkable. VASCULATURE: Unremarkable as visualized. Normal flow voids in the major intracranial circulation. MRI/Brain without Contrast IMPRESSION: Acute 9 mm lacunar infarct within the right thalamus. at 1655 Reported and signed by: Aníbal Montes MD Electronically Signed: Aníbal Montes MD at 16:54 EDT Tel , Service support ,
[2020-10-21] MEDS: Lisinopril 10 MG Tablet PO (09:03)
[2020-10-21] MEDS: Ascorbic Acid 500 MG Tablet 2000 MG PO (09:03)
[2020-10-21] MEDS: Aspirin 81 MG TAB.CHEW PO (09:03)
[2020-10-21 12:00] LABS: Bedside Glucose 185 mg/dL (70-110)
--- NOTE | 2020-10-21 16:37 | PN.HOSP_ITS ---
Subjective Subjective Patient seen and examined. He still complains of some numbness and tingling in his left hand but otherwise had no complaints. Review of systems otherwise negative. He has remained hemodynamically stable. Objective Data Objective Data Vital Signs: Vital Signs Temp Pulse Resp BP Pulse Ox 98.1 F 81 12 132/67 H 95 10/21/20 15:30 10/21/20 15:30 10/21/20 15:30 10/21/20 15:30 10/21/20 15:30 Oxygen Delivery Method Room Air Weight: 191 lb 9.307 oz Body Mass Index (BMI) 28.3 Intake & Output: Intake and Output for Last 24 Hours 10/19/20 10/20/20 10/21/20 23:59 23:59 23:59 Intake Total 463.33 / 463.33 1080 / 1080 Balance 463.33 / 463.33 1080 / 1080 Lab / Micro Data Result Diagrams: 10/20/20 11:11 10/20/20 11:11 Labs: Laboratory Results - last 24 hr 10/20/20 15:40: Troponin I High Sens 9 10/20/20 21:52: POC Glucose 265 H 10/21/20 05:46: Triglycerides 363 H, Cholesterol 266 H, LDL Cholesterol 160 H, VLDL Cholesterol 73 H, HDL Cholesterol 33 L 10/21/20 06:36: POC Glucose 206 H 10/21/20 11:40: POC Glucose 185 H Radiography Diagnostic Testing: Radiology Impression Echocardiogram 10/20/20 15:08 Interpretation Summary Normal LV size. Left ventricular systolic function is normal. The estimated ejection fraction is 60 %. Stage 1 diastolic dysfunction. Bubble contrast study negative for right to left interatrial shunt. Ordering Physician: Danilo Gordon Referring Physician: Lucius Saldana Performed By: Flori Singh RDCS Physical Exam Const alert, oriented x3 and no apparent distress Exam Limitations: no limitations HEENT head/scalp atraumatic, moist oral mucous membranes and oropharynx normal Head and Scalp: normocephalic Eyes PERRL, EOMs intact bilaterally and conjunctivae normal Neck no lymphadenopathy Resp normal respiratory effort, no use of accessory muscles and clear to auscultation bilaterally Cardio regular rate, regular rhythm, S1 normal heart sound, S2 normal heart sound and no murmurs GI normal to inspection, nondistended, normoactive bowel sounds, soft to palpation, non-tender and non-distended Extremity normal to inspection, full ROM and no clubbing, cyanosis or edema Peripheral Pulses: Yes pulses 2+ throughout Skin no rashes or lesions noted Neuro oriented x3, CN's II-XII intact bilaterally and moves all extremities Sensorium / Orientation: awake, alert and oriented to person Motor Exam: strength 5/5 throughout Psych affect normal Assessment & Plan Assessment/Plan (1) Acute CVA (cerebrovascular accident): PLAN: #LUE numbness, concerning for CVA * Still complains of mild left upper extremity numbness and tingling * On p.o. aspirin. MRI of the brain pending. * Lipid panel concerning for elevated cholesterol and LDL. Started on p.o. atorvastatin 40 mg nightly. * 2D echo done:EF of 60%, with stage 1 diastolic dysfunction and negative bubble study. * PT OT on board. * #Type 2 diabetes mellitus: on glipizide. Insulin sliding scale. Checks AC at bedtime. Metformin on hold as he just received contrast. #Nicotine dependence: Counseled to quit as he smokes 2.5 packs of cigarettes daily. #Hypertension: on lisinopril. #DVT prophylaxis: SCDs Charges/Coding Visit Charges Inpatient E&M: 45179 Subs Hosp L2
[2020-10-21] MEDS: Atorvastatin Calcium 40 MG Tablet PO (16:41)
[2020-10-21 16:46] LABS: Bedside Glucose 312 mg/dL (70-110)
--- NOTE | 2020-10-21 16:56 | PCM.DC ---
Discharge Instructions Follow Up Care Test Results: Test results from this visit will be discussed in further detail at your follow-up appointment, if applicable. Discharge Plan Admission Admit Date/Time: 10/20/20 15:05 Primary Reason for Your Visit: left sided numbness Attending Provider: Lilliana Bennett Primary Care Provider: Lucius Saldana Instructions Patient Instructions: Arm Care After a Stroke Discharge Orders/Prescriptions Prescriptions: New aspirin 81 mg tablet,delayed release (DR/EC) 81 mg PO DAILY Qty: 30 RF: 1 atorvastatin 40 mg tablet 40 mg PO QHS Qty: 30 RF: 1 Continued metformin 500 MG tablet 1,000 mg PO BIDCM RF: 0 lisinopril 10 MG tablet 10 mg PO DAILY RF: 0 glipizide 5 MG tablet 5 mg PO DAILY@0730 RF: 0 omega-3 fatty acids-fish oil 1 EACH capsule 1 ea PO BID RF: 0 ascorbic acid (vitamin C) [Vitamin C] 500 MG tablet,chewable 2,000 mg PO DAILY RF: 0 albuterol sulfate [ProAir HFA] 1 PUFF inhaler 1 - 2 puff inhalation Q4H PRN PRN (Reason: Wheezing) Qty: 1 RF: 0 insulin lispro [Humalog KwikPen Insulin] 100 unit/mL insulin pen See Rx Instructions .ROUTE .COMPLEX RF: 0 Discontinued gemfibrozil 600 tablet 600 mg PO BID RF: 0 prednisone [Deltasone] 20 MG tablet 40 mg PO DAILY Qty: 14 RF: 0 Referrals / Follow Up: Lucius Saldana MD [Primary Care Provider] - Within 2 Weeks Disposition Disposition (needs filled in before D/C Order can be placed): Home, Self Care
--- NOTE | 2020-10-21 17:31 | TELEMED_ITS ---
[facility] Tele[facility] has confirmed receipt of a request for visit. This document confirms receipt of the order initiating the consult. To find the results of the consultation, please view the patient's reports for the scanned Telemed Consult.
[2020-10-22] VITALS (7 sets, daily range): BP systolic 146–157; BP diastolic 67–93; PULSE 58–70; RESP 16–18; TEMP 36.5–36.7; O2SAT 93–98
[2020-10-22] MEDS: Senna/Docusate Sodium 1 Tablet PO ×2 (02:15→09:28)
[2020-10-22] MEDS: Insulin Lispro 100 UNIT/ML INSULN.PEN SC ×2 (06:36→12:12)
[2020-10-22] MEDS: Gemfibrozil 600 MG Tablet PO (06:37)
[2020-10-22] MEDS: glipiZIDE 5 MG Tablet PO (06:37)
[2020-10-22 06:46] LABS: Bedside Glucose 229 mg/dL (70-110)
[2020-10-22 08:47] LABS: Hemoglobin A1c 8.7 % (3.8-5.6)
[2020-10-22] MEDS: Aspirin 81 MG TAB.CHEW PO (09:27)
[2020-10-22] MEDS: Ascorbic Acid 500 MG Tablet 2000 MG PO (09:27)
[2020-10-22] MEDS: Lisinopril 10 MG Tablet PO (09:27)
--- NOTE | 2020-10-22 09:30 | NURSING ---
patient took out IV and telemetry. Refusing to put tele back on. Patient states he is being discharged soon.
[2020-10-22] MEDS: Acetaminophen 325 MG Tablet 650 MG PO (10:00)
--- NOTE | 2020-10-22 10:55 | CASEMGMT ---
SW completed a PHQ 9 with patient as he had a Stroke. He scored a 2 which indicates minimal depression. He declined need for counseling resources. He did accept the pamphlet on [facility] Stroke support group. Priyanka KINGSTON
--- NOTE | 2020-10-22 11:30 | CASEMGMT ---
DANI ORTEGA assessment: Face to Face with patient for initial transition planning/care coordination assessment. DANI ORTEGA introduced self and role at [facility], pt voices understanding and consents to assessment. Pt is sitting up in chair in no distress on room air. Pt is A/Ox4 and answers all questions appropriately. Care providers, pharmacy, and demographics verified. Presentation: Pt c/o left hand, face, lip numbness since Wednesday Admitting dx: L sided numbness, CVA PCP: Les Specialists: None Preferred Pharmacy: [facility] Insurance: [facility] Prescription Benefit: [facility] Living Will/HPOA: Pt states has LW/HPOA and is aware that it's not on file at [facility]. Pt states cannot remember who his HPOA is. LNOK: Yancy Kimball, mother Living Arrangements: Pt states lives alone in upstairs apt and states no concerns at home. Pt states is independent with ADL's. Transportation: Pt states walks most places and states no transportation concerns. DME/HHC: Pt states no current DME or need for any DME. Pt states no hx of HHC or SNF in the past. CCN referral made d/t nursing concerns for pt's med management at home. Pt states no concerns with going home at discharge. Pt is on disability. Pt states smokes cigarettes 'occasionally' and has not had ETOH in 32 years. Pt states no further concerns/needs. CM to follow for any further discharge planning/needs. Advised pt to ask for CM if any further questions/concerns/needs arise, voices understanding. Pt Goal: Home Plan[place] DANI [place]TE[place]
--- NOTE | 2020-10-22 11:49 | DS.PCM_ITS ---
Providers Date of Admission: 10/21/20 Primary Care Physician: Dr. Lucius Saldana MD Reason For Visit: LEFT SIDED NUMBNESS Diagnosis Discharge Diagnosis (1) Acute CVA (cerebrovascular accident): Status: Acute Code(s): I63.9 - Cerebral infarction, unspecified Medications at Discharge Home Medications glipizide 5 mg PO DAILY@0730 06/06/15 lisinopril 10 mg PO DAILY 06/06/15 metformin 1,000 mg PO BIDCM 06/06/15 omega-3 fatty acids-fish oil 1 ea PO BID 06/06/15 ascorbic acid (vitamin C) [Vitamin C] 2,000 mg PO DAILY 07/08/18 albuterol sulfate [ProAir HFA] 1 - 2 puff INHALATION Q4H PRN PRN #1 inhaler 07/12/18 insulin lispro [Humalog KwikPen Insulin] See Rx Instructions .ROUTE .COMPLEX 10/20/20 aspirin 81 mg PO DAILY #30 tab 10/21/20 atorvastatin 40 mg PO QHS #30 tab 10/21/20 Hospital Course Operations None Procedures 2-D Echocardiogram Summary of Care Provided Minutes Spent on Discharge: 45 Hospital Course: Patient is a 64-year-old male with a past medical history as outlined was admitted through the ED on 10/20/2020 with a 1 day history of numbness of his left arm and face with no previous history of this prior to this presentation. Symptoms started the day before admission but he wanted to sleep on it but he woke up on the day of presentation and symptoms were still present so he came into the ED. CTA of the head and neck showed low-attenuation focus in the right parietal vertex. He was therefore admitted for probable stroke. He was started on aspirin as well as high intensity statin. 2D echo done showed normal left ventricular size with EF of 60% and normal left ventricular systolic function as well as stage I diastolic function and negative bubble study. MRI of the brain done showed an acute 9 mm right thalamic lacunar infarct. SOC was consulted and recommended aspirin and Plavix as well as high intensity statin. Patient however cannot have Plavix in light of his history of aortic arch dissection. Patient was counseled to quit smoking. He remained stable and was discharged home on 10/22/2020 with a prescription for p.o. aspirin 81 mg daily as well as p.o. atorvastatin 40 mg nightly. His A1c was 8.7 he was counseled to be compliant with his diabetes medications. He is to follow-up with his primary care doctor and neurology on outpatient basis. Patient seen and examined prior to discharge. He felt well and his symptoms had improved. Review of systems is otherwise negative. Labs and vitals reviewed. Home medication reviewed and reconciled. Physical Exam Const alert, oriented x3 and no apparent distress General Appearance: cooperative and comfortable Exam Limitations: no limitations HEENT normocephalic, head/scalp atraumatic, moist oral mucous membranes and oropharynx normal Eyes PERRL, EOMs intact bilaterally and conjunctivae normal Neck no lymphadenopathy Resp normal respiratory effort, no retractions, no use of accessory muscles and clear to auscultation bilaterally Cardio regular rate, regular rhythm, S1 normal heart sound, S2 normal heart sound and no murmurs GI normal to inspection, nondistended, normoactive bowel sounds, soft to palpation, non-tender and non-distended Extremity normal to inspection, full ROM and no clubbing, cyanosis or edema Skin no rashes or lesions noted Neuro oriented x3, CN's II-XII intact bilaterally and moves all extremities Sensorium / Orientation: awake, alert and oriented to person Motor Exam: strength 5/5 throughout Psych affect normal Weight / BMI Weight Weight: 191 lb 9.307 oz Body Mass Index (BMI) 28.3 ABG / Lab / Microbiology Data Result Diagrams: 10/20/20 11:11 10/20/20 11:11 Laboratory: Laboratory Results - last 24 hr 10/21/20 05:46: Hemoglobin A1c 8.7 H 10/21/20 11:40: POC Glucose 185 H 10/21/20 16:35: POC Glucose 312 H 10/22/20 06:36: POC Glucose 229 H Radiography Diagnostic Testing: Radiology Impression Echocardiogram 10/20/20 15:08 Interpretation Summary Normal LV size. Left ventricular systolic function is normal. The estimated ejection fraction is 60 %. Stage 1 diastolic dysfunction. Bubble contrast study negative for right to left interatrial shunt. Ordering Physician: Danilo Gordon Referring Physician: Lucius Saldana Performed By: Flori Singh RDCS Brain MRI 10/21/20 08:30 IMPRESSION: Acute 9 mm lacunar infarct within the right thalamus. at 1655 Reported and signed by: Aníbal Montes MD Electronically Signed: Aníbal Montes MD at 16:54 EDT Tel , Service support , ADDENDUM: 10/21/20 1724 IMPRESSION: Acute 9 mm lacunar infarct within the right thalamus. at 1655 Reported and signed by: Aníbal Montes MD N.B. : The above Results were Read Back by Aníbal Montes MD to Dr. Sabrina MD, and understanding confirmed on 10/21/2020 17:17:22 (ET). Electronically Signed: Aníbal Montes MD at 16:54 EDT Tel , Service support , D/C Instructions Discharge Diet: 1800 Calorie Control Diet Discharge Activity: Return to Normal Activity Weight Bearing Status: Weight bearing as tolerated Call your doctor if you observe: Fever of 101 or Higher, Numbness or Tingling, Shortness of breath, Dizziness and Increased palpitations (irregular heartbeat) Meaningful Use Info Meaningful Use Diagnoses (Choose all that apply): Ischemic CVA CVA Therapy Assessed for PT,OT and/or ST?: Yes Ischemic Stroke Antithrombotic order at d/c?: Yes Dx of Atrial fib/flutter?: No Anticoagulant at discharge?: No Reason anticoagulant not ordered: Treatment not Indicated Statins at discharge?: Yes Primary Dx Acute Ischemic CVA?: Yes IV tPA ordered during stay?: No Reason IV t-PA not ordered: Treatment not Indicated Discharge Plan Admission Admit Date/Time: 10/21/20 16:54 Primary Reason for Your Visit: left sided numbness, CVA Attending Provider: Lilliana Bennett Primary Care Provider: Lucius Saldana Instructions Patient Instructions: Discharge Instructions for Stroke, Arm Care After a St roke Additional Instructions / Restrictions: counseled to quit smoking. Discharge Orders/Prescriptions Prescriptions: New aspirin 81 mg tablet,delayed release (DR/EC) 81 mg PO DAILY Qty: 30 RF: 1 atorvastatin 40 mg tablet 40 mg PO QHS Qty: 30 RF: 1 Continued metformin 500 MG tablet 1,000 mg PO BIDCM RF: 0 lisinopril 10 MG tablet 10 mg PO DAILY RF: 0 glipizide 5 MG tablet 5 mg PO DAILY@0730 RF: 0 omega-3 fatty acids-fish oil 1 EACH capsule 1 ea PO BID RF: 0 ascorbic acid (vitamin C) [Vitamin C] 500 MG tablet,chewable 2,000 mg PO DAILY RF: 0 albuterol sulfate [ProAir HFA] 1 PUFF inhaler 1 - 2 puff inhalation Q4H PRN PRN (Reason: Wheezing) Qty: 1 RF: 0 insulin lispro [Humalog KwikPen Insulin] 100 unit/mL insulin pen See Rx Instructions .ROUTE .COMPLEX RF: 0 Discontinued gemfibrozil 600 tablet 600 mg PO BID RF: 0 prednisone [Deltasone] 20 MG tablet 40 mg PO DAILY Qty: 14 RF: 0 Referrals / Follow Up: Florencio Pacheco MD [STAFF PHYSICIAN] - Within 2 Weeks Lucius Saldana MD [Primary Care Provider] - Within 2 Weeks Disposition Discharge Orders: Discharge Patient (Routine); Ordered 10/22/20 Ordered By: Dr. Lilliana Bennett Charges/Coding Visit Charges Inpatient E&M: 86163 Disch Hosp
[2020-10-22 12:21] LABS: Bedside Glucose 168 mg/dL (70-110)
--- NOTE | 2020-10-22 12:21 | PHA.DC.MC ---
Pharmacy Service has performed discharge medication reconciliation and counseling for this patient. 1. ASPIRIN 81MG PO DAILY 2. ATORVASTATIN 40MG PO QHS The patient's discharge medication list was reviewed for discrepancies and discrepancies were resolved. Home Medications glipizide 5 mg PO DAILY@0730 06/06/15 lisinopril 10 mg PO DAILY 06/06/15 metformin 1,000 mg PO BIDCM 06/06/15 omega-3 fatty acids-fish oil 1 ea PO BID 06/06/15 ascorbic acid (vitamin C) [Vitamin C] 2,000 mg PO DAILY 07/08/18 albuterol sulfate [ProAir HFA] 1 - 2 puff INHALATION Q4H PRN PRN #1 inhaler 07/12/18 insulin lispro [Humalog KwikPen Insulin] See Rx Instructions .ROUTE .COMPLEX 10/20/20 aspirin 81 mg PO DAILY #30 tab 10/21/20 atorvastatin 40 mg PO QHS #30 tab 10/21/20 The patient was counseled on the following discharge medications and changes in medications for homegoing were reviewed. The Reason for Use, instructions for use, and potential side effects were reviewed for all new medications. The patient's questions regarding all of their medications were answered. The patient was able to verbally demonstrate an understanding of their discharge medications.
--- NOTE | 2020-10-22 13:45 | CASEMGMT ---
CCN referral made to assist with pt's meds. Juan Miguel LOUISE CM
--- NOTE | 2020-11-21 14:07 | CCN.REFER ---
PATIENT DECLINES CCN. VISIT TO HOME MADE. [employer] HELPER MET PATIENT ON [address] [place] PATIENT DECLINED ANYONE INTO HOME. STATES HOME IS FULL OF BED BUGS. REPORTS NEIGHBORS ARE ALL DRUG ADDICTS AND SELL FROM THEIR HOME. PATIENT STATES HE IS ALSO FORMER DRUG AND ALCOHOL ADDICT. CCN CALLED PCP AND ARRANGED A FOLLOW UP FOR 12/09 @ 3P. APPT W/ DR. WAKEFIELD ALSO MADE FOR 12/22 @ 8A.
== END 2020-10-22 14:47 | disposition home or self-care (01) | DRG 45 ==
LOC: ED 12:25 → PCU 15:09
PROVIDERS: Emergency Provider Emergency Medicine; PCP Family Medicine; Visit Provider Student in an Organized Health Care Education/Training Program
DX: I63.81 Other cerebral infarction due to occlusion or stenosis of small artery (principal); J43.9 Emphysema, unspecified; I48.91 Unspecified atrial fibrillation; E11.9 Type 2 diabetes mellitus without complications; Z79.4 Long term (current) use of insulin; R27.0 Ataxia, unspecified; R29.701 NIHSS score 1; Z20.822 Contact with and (suspected) exposure to COVID-19; F17.210 Nicotine dependence, cigarettes, uncomplicated; Z79.82 Long term (current) use of aspirin; Z79.899 Other long term (current) drug therapy
CPT/HCPCS: Q9957; 36415; 70496; 70498; 70551; 71045; 80048; 80061; 82962; 83036; 84484; 85025; 85610; 85730; 93005; 93306; 94762; 96360; 96361; 97162; 97166; 97530; 97802; 99218; 99285; 99406; J7030; Q9967; A4216; G0378; J3490